=== PATIENT | male | born 1960 | race Caucasian/White ===

== ENCOUNTER 2017-04-27 10:25 | Inpatient (IN) | payer OTHER ==
[~2017-04-27] VITALS: Ht 175.3 cm; Wt 58.1 kg
[~2017-04-27 10:25] MED LIST: AMBIEN10 M1 PO; ANTIVERT25 MG; ASPIR 8181 MG PO; BONINE25 MG PO; COREG12.5 MG PO; COREG25 MG PO; COREG6.25 MG PO; KEFLEX500 MG PO; LIPITOR40 MG PO; OMEPRAZOLE D/R20 MG PO; PERCOCET 325 MG1 TA2 PO; PERCOCET 325 MG1 TA3 PO; PERCOCET 325 MG1 TA4; PERCOCET 325 MG1 TAB PO; PHENERGAN25 M1 PO; PREVACID15 MG PO; ULTRAM50 MG PO; VICODIN 5/500 505 MG PO; VICODIN ES 7501 TAB PO; ZOCOR40 MG PO; ZOFRAN ODT4 MG SL; ZOFRAN ODT8 MG PO
[2017-04-27 10:28] VITALS: BP 126/85
[2017-04-27] MEDS ORDERED: METFORMIN500 MG PO (10:33)
[2017-04-27 11:03] LABS: BASO % 0.3 % (0.0-1.0); EOS # 0.1 10*3/uL (0.0-0.4); EOS % 0.9 % (1.0-4.0); HEMATOCRIT 51.9 % (42.0-52.0); HEMOGLOBIN 17.6 g/dl (14.0-18.0); LYMPH # 1.3 10*3/uL (1.3-4.4); LYMPH % 16.2 % (27.0-41.0); MEAN CELL VOLUME 95.2 fl (80.0-94.0); MEAN CORPUSCULAR HGB 32.3 pg (27.0-31.0); MEAN CORPUSCULAR HGB CONC 33.9 g/dl (33.0-37.0); MEAN PLATELET VOLUME 10.6 fl (9.6-12.3); MONO # 1.1 10*3/uL (0.1-1.0); MONO % 14.8 % (3.0-9.0); NEUT # 5.2 10*3/uL (2.3-7.9); NEUT % 67.3 % (47.0-73.0); PLATELET COUNT AUTOMATED 163 10*3/uL (130-400); RED BLOOD COUNT 5.45 10*6/uL (4.50-5.90); RED CELL DISTRI WIDTH 15.9 % (0-14.5); WHITE BLOOD COUNT 7.7 10*3/uL (4.8-10.8)
[2017-04-27 11:17] LABS: INTERNATIONAL NORM RATIO 0.9 (2.0-3.5)
[2017-04-27 11:24] LABS: ALBUMIN 3.8 gm/dl (3.1-4.5); ALKALINE PHOSPHATASE 61 U/L (45-117); BILIRUBIN, TOTAL 0.6 mg/dl (0.2-1.0); BUN 13 mg/dl (7-24); CARBON DIOXIDE 26 mmol/L (21-32); CHLORIDE 99 mmol/L (98-107); EST GLOM FILT AFRICAN AMERICAN > 60 ml/min; GLUCOSE 168 mg/dL (65-99); MAGNESIUM 1.5 mg/dL (1.5-2.1); POTASSIUM 4.8 mmol/L (3.5-5.1); SGOT/AST 22 IU/L (3-35); SGPT/ALT 21 U/L (12-78); SODIUM 136 mmol/L (136-145); TOTAL PROTEIN 8.5 gm/dL (6.4-8.2)
[2017-04-27 11:28] LABS: TROPONIN I < 0.015 ng/ml (<0.045)
[2017-04-27 12:09] VITALS: BP 122/78
[2017-04-27 12:30] VITALS: BP 130/82
[2017-04-27] MEDS ORDERED: AMBIEN10 M1 PO (12:58)
[2017-04-27] MEDS ORDERED: DRAMAMINE LESS25 MG PO (12:59)
[2017-04-27 13:01] LABS: LA>2 REFLEX 2 HR DRAW NOW
[2017-04-27 16:00] VITALS: BP 128/83
[2017-04-27 20:00] VITALS: BP 112/64
[2017-04-27 22:00] VITALS: BP 118/64
[2017-04-28] VITALS: BP 110/59
[2017-04-28 06:11] LABS: BASO % 0.3 % (0.0-1.0); EOS # 0.1 10*3/uL (0.0-0.4); EOS % 1.6 % (1.0-4.0); LYMPH # 0.9 10*3/uL (1.3-4.4); LYMPH % 15.4 % (27.0-41.0); MEAN CELL VOLUME 96.6 fl (80.0-94.0); MEAN CORPUSCULAR HGB 32.6 pg (27.0-31.0); MEAN CORPUSCULAR HGB CONC 33.7 g/dl (33.0-37.0); MEAN PLATELET VOLUME 10.9 fl (9.6-12.3); MONO # 0.9 10*3/uL (0.1-1.0); MONO % 16.3 % (3.0-9.0); NEUT # 3.8 10*3/uL (2.3-7.9); NEUT % 66.1 % (47.0-73.0); PLATELET COUNT AUTOMATED 128 10*3/uL (130-400); RED BLOOD COUNT 4.42 10*6/uL (4.50-5.90); RED CELL DISTRI WIDTH 15.8 % (0-14.5); WHITE BLOOD COUNT 5.7 10*3/uL (4.8-10.8)
[2017-04-28 06:19] LABS: HEMATOCRIT 42.7 % (42.0-52.0); HEMOGLOBIN 14.4 g/dl (14.0-18.0)
[2017-04-28 06:29] LABS: ALBUMIN 2.9 gm/dl (3.1-4.5); ALKALINE PHOSPHATASE 45 U/L (45-117); BILIRUBIN, TOTAL 0.6 mg/dl (0.2-1.0); BUN 10 mg/dl (7-24); CARBON DIOXIDE 27 mmol/L (21-32); CHLORIDE 103 mmol/L (98-107); EST GLOM FILT AFRICAN AMERICAN > 60 ml/min; FREE T4 1.34 ng/dl (0.76-1.46); GLUCOSE 130 mg/dL (65-99); MAGNESIUM 1.3 mg/dL (1.5-2.1); POTASSIUM 3.9 mmol/L (3.5-5.1); SGOT/AST 18 IU/L (3-35); SGPT/ALT 18 U/L (12-78); SODIUM 137 mmol/L (136-145); TOTAL PROTEIN 6.3 gm/dL (6.4-8.2)
[2017-04-28 06:33] LABS: THYROID STIM HORMONE (HS) 0.444 uIU/ml (0.358-4.75)
[2017-04-28 06:43] LABS: PROTHROMBIN TIME 10.1 SECONDS (9.0-12.4)
[2017-04-28 07:20] LABS: HEMOGLOBIN A1c 6.4 % (4.8-5.6)
[2017-04-28 07:25] LABS: VITAMIN D, 25-HYDROXY 9.9 ng/mL (30-100)
[2017-04-28 07:26] LABS: FOLIC ACID 9.44 ng/mL (>5.38)
[2017-04-28 08:00] VITALS: BP 130/60
[2017-04-28 12:00] VITALS: BP 128/62
[2017-04-28] MEDS ORDERED: VITAMIN D5000 I3 PO (13:45)
== END 2017-04-28 15:26 | disposition home or self-care (01) | DRG 439 ==
LOC: ED 10:25 → 5E 11:52 → EDHOLD 11:52 → 5E 12:10
PROVIDERS: Family Medicine; Student in an Organized Health Care Education/Training Program
DX: K85.90 Acute pancreatitis without necrosis or infection, unspecified (principal); E87.2 Acidosis; E44.0 Moderate protein-calorie malnutrition; E11.65 Type 2 diabetes mellitus with hyperglycemia; Z68.1 Body mass index [BMI] 19.9 or less, adult; E86.0 Dehydration; K86.1 Other chronic pancreatitis; E78.5 Hyperlipidemia, unspecified; I10 Essential (primary) hypertension; K21.9 Gastro-esophageal reflux disease without esophagitis; I25.10 Atherosclerotic heart disease of native coronary artery without angina pectoris; F17.210 Nicotine dependence, cigarettes, uncomplicated; F10.10 Alcohol abuse, uncomplicated; E55.9 Vitamin D deficiency, unspecified; Z95.0 Presence of cardiac pacemaker; Z83.3 Family history of diabetes mellitus; Z82.49 Family history of ischemic heart disease and other diseases of the circulatory system; Z71.6 Tobacco abuse counseling; Z79.82 Long term (current) use of aspirin; Z79.84 Long term (current) use of oral hypoglycemic drugs; Z79.899 Other long term (current) drug therapy

== ENCOUNTER 2017-06-23 06:35 | Inpatient (IN) | payer OTHER ==
[~2017-06-23] VITALS: Ht 175.3 cm; Wt 59.6 kg
[~2017-06-23 06:35] MED LIST changes: +DRAMAMINE LESS25 MG PO; +METFORMIN500 MG PO; +VITAMIN D5000 I3 PO
[2017-06-23 06:38] VITALS: BP 133/95
[2017-06-23 07:11] LABS: BASO % 0.1 % (0.0-1.0); EOS # 0.1 10*3/uL (0.0-0.4); EOS % 0.8 % (1.0-4.0); HEMATOCRIT 47.2 % (42.0-52.0); HEMOGLOBIN 15.8 g/dl (14.0-18.0); LYMPH # 0.8 10*3/uL (1.3-4.4); LYMPH % 7.8 % (27.0-41.0); MEAN CELL VOLUME 97.1 fl (80.0-94.0); MEAN CORPUSCULAR HGB 32.5 pg (27.0-31.0); MEAN CORPUSCULAR HGB CONC 33.5 g/dl (33.0-37.0); MEAN PLATELET VOLUME 10.5 fl (9.6-12.3); MONO % 9.8 % (3.0-9.0); NEUT # 8.5 10*3/uL (2.3-7.9); NEUT % 81.1 % (47.0-73.0); PLATELET COUNT AUTOMATED 182 10*3/uL (130-400); RED BLOOD COUNT 4.86 10*6/uL (4.50-5.90); RED CELL DISTRI WIDTH 16.1 % (0-14.5); WHITE BLOOD COUNT 10.5 10*3/uL (4.8-10.8)
[2017-06-23 07:26] LABS: ALBUMIN 3.9 gm/dl (3.1-4.5); ALKALINE PHOSPHATASE 65 U/L (45-117); BILIRUBIN, TOTAL 0.8 mg/dl (0.2-1.0); BUN 9 mg/dl (7-24); CARBON DIOXIDE 31 mmol/L (21-32); CHLORIDE 95 mmol/L (98-107); EST GLOM FILT AFRICAN AMERICAN > 60 ml/min; GLUCOSE 159 mg/dL (65-99); POTASSIUM 3.8 mmol/L (3.5-5.1); SGOT/AST 20 IU/L (3-35); SGPT/ALT 16 U/L (12-78); SODIUM 134 mmol/L (136-145); TOTAL PROTEIN 8.1 gm/dL (6.4-8.2)
[2017-06-23 07:41] VITALS: BP 134/90
[2017-06-23] MEDS ORDERED: PROTONIX40 MG PO (09:09)
[2017-06-23 12:00] VITALS: BP 154/86
[2017-06-23 16:00] VITALS: BP 162/88
[2017-06-23 20:00] VITALS: BP 167/85
[2017-06-24] VITALS: BP 146/70
[2017-06-24 06:41] LABS: BASO % 0.2 % (0.0-1.0); EOS % 0.4 % (1.0-4.0); HEMATOCRIT 43.8 % (42.0-52.0); HEMOGLOBIN 14.6 g/dl (14.0-18.0); IG # 0.1 10*3/uL (0.0-0.1); LYMPH # 0.7 10*3/uL (1.3-4.4); LYMPH % 8.2 % (27.0-41.0); MEAN CELL VOLUME 96.5 fl (80.0-94.0); MEAN CORPUSCULAR HGB 32.2 pg (27.0-31.0); MEAN CORPUSCULAR HGB CONC 33.3 g/dl (33.0-37.0); MEAN PLATELET VOLUME 10.9 fl (9.6-12.3); MONO # 1.1 10*3/uL (0.1-1.0); MONO % 13.4 % (3.0-9.0); NEUT # 6.2 10*3/uL (2.3-7.9); NEUT % 77.2 % (47.0-73.0); PLATELET COUNT AUTOMATED 143 10*3/uL (130-400); RED BLOOD COUNT 4.54 10*6/uL (4.50-5.90); WHITE BLOOD COUNT 8.1 10*3/uL (4.8-10.8)
[2017-06-24 07:20] LABS: INTERNATIONAL NORM RATIO 0.9 (2.0-3.5); PROTHROMBIN TIME 9.8 SECONDS (9.0-12.4)
[2017-06-24 07:28] LABS: ALBUMIN 3.2 gm/dl (3.1-4.5); BUN 8 mg/dl (7-24); CARBON DIOXIDE 26 mmol/L (21-32); CHLORIDE 98 mmol/L (98-107); CHOLESTEROL 116 mg/dL (<200); GLUCOSE 115 mg/dL (65-99); MAGNESIUM 1.5 mg/dL (1.5-2.1); POTASSIUM 3.6 mmol/L (3.5-5.1); SGOT/AST 17 IU/L (3-35); SGPT/ALT 15 U/L (12-78); SODIUM 135 mmol/L (136-145)
[2017-06-24 07:45] LABS: ALKALINE PHOSPHATASE 56 U/L (45-117); BILIRUBIN, TOTAL 0.7 mg/dl (0.2-1.0); EST GLOM FILT AFRICAN AMERICAN > 60 ml/min; FREE T4 1.46 ng/dl (0.76-1.46); HDL CHOLESTEROL 49 mg/dl (40-60); LDL CHOLESTEROL 44 mg/dL (9-159); PHOSPHOROUS 2.1 mg/dL (2.5-4.9); THYROID STIM HORMONE (HS) 0.318 uIU/ml (0.358-4.75); TOTAL PROTEIN 7.4 gm/dL (6.4-8.2); TRIGLYCERIDES 115 mg/dl (<150); VLDL CHOLESTEROL 23 mg/dL (6-40)
[2017-06-24 08:00] VITALS: BP 160/74
[2017-06-24 08:34] LABS: VITAMIN D, 25-HYDROXY 31.1 ng/mL (30-100)
[2017-06-24 08:35] LABS: FOLIC ACID 9.34 ng/mL (>5.38)
[2017-06-24 12:00] VITALS: BP 149/89
[2017-06-24 16:00] VITALS: BP 149/83
[2017-06-24 20:00] VITALS: BP 149/78
[2017-06-25] VITALS: BP 117/85
[2017-06-25 06:31] LABS: BUN 8 mg/dl (7-24); CARBON DIOXIDE 29 mmol/L (21-32); CHLORIDE 102 mmol/L (98-107); EST GLOM FILT AFRICAN AMERICAN > 60 ml/min; GLUCOSE 126 mg/dL (65-99); PHOSPHOROUS 2.1 mg/dL (2.5-4.9); POTASSIUM 3.5 mmol/L (3.5-5.1); SODIUM 138 mmol/L (136-145)
[2017-06-25 08:00] VITALS: BP 115/73
[2017-06-25 12:00] VITALS: BP 120/67
== END 2017-06-25 14:30 | disposition home or self-care (01) | DRG 439 ==
LOC: ED 06:35 → 5E 07:43 → EDHOLD 07:43 → 5E 07:48
PROVIDERS: Emergency Medicine; Internal Medicine; Internal Medicine Hospice and Palliative Medicine
DX: K85.20 Alcohol induced acute pancreatitis without necrosis or infection (principal); E44.0 Moderate protein-calorie malnutrition; E87.8 Other disorders of electrolyte and fluid balance, not elsewhere classified; R65.10 Systemic inflammatory response syndrome (SIRS) of non-infectious origin without acute organ dysfunction; E11.65 Type 2 diabetes mellitus with hyperglycemia; E83.39 Other disorders of phosphorus metabolism; E87.1 Hypo-osmolality and hyponatremia; Z68.1 Body mass index [BMI] 19.9 or less, adult; K86.0 Alcohol-induced chronic pancreatitis; E83.52 Hypercalcemia; I10 Essential (primary) hypertension; F10.10 Alcohol abuse, uncomplicated; D72.810 Lymphocytopenia; E78.2 Mixed hyperlipidemia; F17.210 Nicotine dependence, cigarettes, uncomplicated; D75.89 Other specified diseases of blood and blood-forming organs; I25.10 Atherosclerotic heart disease of native coronary artery without angina pectoris; K21.9 Gastro-esophageal reflux disease without esophagitis; E78.5 Hyperlipidemia, unspecified; Z93.3 Colostomy status; Z71.6 Tobacco abuse counseling; Z79.82 Long term (current) use of aspirin; Z79.84 Long term (current) use of oral hypoglycemic drugs; Z79.899 Other long term (current) drug therapy; Z95.0 Presence of cardiac pacemaker; Z83.3 Family history of diabetes mellitus; Z82.49 Family history of ischemic heart disease and other diseases of the circulatory system

== ENCOUNTER 2017-07-09 18:13 | Emergency (ER) | payer OTHER ==
[~2017-07-09] VITALS: Ht 175.2 cm; Wt 61.7 kg
[~2017-07-09 18:13] MED LIST changes: +PROTONIX40 MG PO
[2017-07-09 19:15] LABS: BASO % 0.5 % (0.0-1.0); EOS # 0.2 10*3/uL (0.0-0.4); EOS % 2.5 % (1.0-4.0); HEMATOCRIT 38.1 % (42.0-52.0); HEMOGLOBIN 12.5 g/dl (14.0-18.0); LYMPH # 1.5 10*3/uL (1.3-4.4); LYMPH % 23.8 % (27.0-41.0); MEAN CELL VOLUME 97.2 fl (80.0-94.0); MEAN CORPUSCULAR HGB 31.9 pg (27.0-31.0); MEAN CORPUSCULAR HGB CONC 32.8 g/dl (33.0-37.0); MEAN PLATELET VOLUME 11.2 fl (9.6-12.3); MONO # 0.8 10*3/uL (0.1-1.0); MONO % 13.5 % (3.0-9.0); NEUT # 3.6 10*3/uL (2.3-7.9); NEUT % 59.4 % (47.0-73.0); PLATELET COUNT AUTOMATED 161 10*3/uL (130-400); RED BLOOD COUNT 3.92 10*6/uL (4.50-5.90); RED CELL DISTRI WIDTH 15.6 % (0-14.5); WHITE BLOOD COUNT 6.1 10*3/uL (4.8-10.8)
[2017-07-09 19:44] LABS: BILIRUBIN NEGATIVE (NEGATIVE); BLOOD NEGATIVE (NEGATIVE); CLARITY CLEAR (CLEAR); COLOR YELLOW (YELLOW); GLUCOSE NEGATIVE (NEGATIVE); KETONE NEGATIVE (NEGATIVE); LEUKO ESTERASE NEGATIVE (NEGATIVE); NITRITE NEGATIVE (NEGATIVE); SPECIFIC GRAVITY <= 1.005 (1.005-1.030); UROBILINOGEN 0.2 E.U./dl (0.2-1.0)
[2017-07-09 19:51] LABS: BACTERIA TRACE; RBC 0-2 rbc/hpf (0-2); WBC 0-2 wbc/hpf (0-5)
[2017-07-09 19:54] LABS: ALBUMIN 2.8 gm/dl (3.1-4.5); ALKALINE PHOSPHATASE 55 U/L (45-117); BUN 8 mg/dl (7-24); CHLORIDE 100 mmol/L (98-107); CREATININE 0.83 mg/dL (0.70-1.30); LIPASE 99 U/L (73-393); SGOT/AST 13 IU/L (3-35); SGPT/ALT 11 U/L (12-78); SODIUM 138 mmol/L (136-145); TOTAL PROTEIN 6.9 gm/dL (6.4-8.2)
[2017-07-09 20:50] VITALS: BP 142/75
== END 2017-07-09 22:56 | disposition home or self-care (01) ==
LOC: ED 18:13
PROVIDERS: Nurse Practitioner
DX: R42 Dizziness and giddiness (principal); K86.1 Other chronic pancreatitis; F17.200 Nicotine dependence, unspecified, uncomplicated; Z95.0 Presence of cardiac pacemaker; Z93.3 Colostomy status; Z79.82 Long term (current) use of aspirin; Z79.899 Other long term (current) drug therapy; Z90.49 Acquired absence of other specified parts of digestive tract; Z87.442 Personal history of urinary calculi

== ENCOUNTER 2017-07-28 11:53 | Inpatient (IN) | payer OTHER ==
[~2017-07-28] VITALS: Ht 175.3 cm; Wt 62.9 kg
[2017-07-28 11:53] VITALS: BP 106/66
[2017-07-28 12:23] LABS: BASO % 0.2 % (0.0-1.0); EOS % 0.3 % (1.0-4.0); HEMATOCRIT 46.6 % (42.0-52.0); HEMOGLOBIN 15.8 g/dl (14.0-18.0); LYMPH # 1.3 10*3/uL (1.3-4.4); LYMPH % 10.5 % (27.0-41.0); MEAN CELL VOLUME 94.5 fl (80.0-94.0); MEAN CORPUSCULAR HGB CONC 33.9 g/dl (33.0-37.0); MEAN PLATELET VOLUME 10.2 fl (9.6-12.3); MONO # 1.5 10*3/uL (0.1-1.0); MONO % 12.1 % (3.0-9.0); NEUT # 9.2 10*3/uL (2.3-7.9); NEUT % 76.3 % (47.0-73.0); PLATELET COUNT AUTOMATED 369 10*3/uL (130-400); RED BLOOD COUNT 4.93 10*6/uL (4.50-5.90); RED CELL DISTRI WIDTH 15.2 % (0-14.5); WHITE BLOOD COUNT 12.1 10*3/uL (4.8-10.8)
[2017-07-28 12:32] LABS: ACT PARTIAL THROMBO TIME 21.2 SECONDS (20.8-31.5)
[2017-07-28 12:38] LABS: ALBUMIN 3.4 gm/dl (3.1-4.5); ALKALINE PHOSPHATASE 78 U/L (45-117); BUN 27 mg/dl (7-24); CHLORIDE 87 mmol/L (98-107); CPK 14 U/L (39-308); CREATININE 1.29 mg/dL (0.70-1.30); LIPASE 579 U/L (73-393); MAGNESIUM 1.7 mg/dL (1.5-2.1); POTASSIUM 3.8 mmol/L (3.5-5.1); SGOT/AST 14 IU/L (3-35); SGPT/ALT 15 U/L (12-78); SODIUM 129 mmol/L (136-145); TOTAL PROTEIN 8.7 gm/dL (6.4-8.2)
[2017-07-28 12:44] LABS: CKMB < 0.5 ng/ml (0.5-3.6); TROPONIN I < 0.015 ng/ml (<0.045)
[2017-07-28 13:28] LABS: BILIRUBIN NEGATIVE (NEGATIVE); BLOOD TRACE-LYSED (NEGATIVE); CLARITY CLEAR (CLEAR); COLOR YELLOW (YELLOW); GLUCOSE NEGATIVE (NEGATIVE); KETONE TRACE (NEGATIVE); LEUKO ESTERASE NEGATIVE (NEGATIVE); NITRITE NEGATIVE (NEGATIVE); SPECIFIC GRAVITY 1.025 (1.005-1.030); UROBILINOGEN 0.2 E.U./dl (0.2-1.0)
[2017-07-28 13:40] LABS: EPITHELIAL CELLS 0-2; RBC 0-2 rbc/hpf (0-2); WBC 16-20 wbc/hpf (0-5)
[2017-07-28 14:22] VITALS: BP 106/66
[2017-07-28 14:34] VITALS: BP 143/76
[2017-07-28 16:00] VITALS: BP 126/73
[2017-07-28] MEDS ORDERED: PERCOCET 10-321 EACH PO (16:23)
[2017-07-28 20:00] VITALS: BP 142/75
[2017-07-29] VITALS: BP 146/72
[2017-07-29 07:17] LABS: BASO % 0.1 % (0.0-1.0); EOS # 0.1 10*3/uL (0.0-0.4); EOS % 0.7 % (1.0-4.0); HEMATOCRIT 39.8 % (42.0-52.0); HEMOGLOBIN 13.7 g/dl (14.0-18.0); LYMPH # 0.8 10*3/uL (1.3-4.4); MEAN CELL VOLUME 94.8 fl (80.0-94.0); MEAN CORPUSCULAR HGB 32.6 pg (27.0-31.0); MEAN CORPUSCULAR HGB CONC 34.4 g/dl (33.0-37.0); MEAN PLATELET VOLUME 10.3 fl (9.6-12.3); MONO % 11.8 % (3.0-9.0); NEUT # 6.9 10*3/uL (2.3-7.9); NEUT % 77.9 % (47.0-73.0); PLATELET COUNT AUTOMATED 243 10*3/uL (130-400); RED CELL DISTRI WIDTH 14.8 % (0-14.5); WHITE BLOOD COUNT 8.8 10*3/uL (4.8-10.8)
[2017-07-29 07:27] LABS: BUN 18 mg/dl (7-24); CHLORIDE 95 mmol/L (98-107); CHOLESTEROL 103 mg/dL (<200); CREATININE 1.06 mg/dL (0.70-1.30); HDL CHOLESTEROL 23 mg/dl (40-60); LDL CHOLESTEROL 40 mg/dL (9-159); MAGNESIUM 1.4 mg/dL (1.5-2.1); POTASSIUM 2.9 mmol/L (3.5-5.1); SODIUM 133 mmol/L (136-145); TRIGLYCERIDES 200 mg/dl (<150); VLDL CHOLESTEROL 40 mg/dL (6-40)
[2017-07-29 07:33] LABS: THYROID STIM HORMONE (HS) 0.394 uIU/ml (0.358-4.75)
[2017-07-29 08:00] VITALS: BP 140/78
[2017-07-29 11:09] LABS: VITAMIN D, 25-HYDROXY 34.2 ng/mL (30-100)
[2017-07-29 12:00] VITALS: BP 114/82
[2017-07-29 16:00] VITALS: BP 125/73
[2017-07-29 20:00] VITALS: BP 119/63
[2017-07-30] VITALS: BP 124/68
[2017-07-30] MEDS ORDERED: VITAMIN D-32000 UNI1 PO (02:15)
[2017-07-30 06:20] LABS: BASO % 0.4 % (0.0-1.0); EOS # 0.1 10*3/uL (0.0-0.4); EOS % 0.8 % (1.0-4.0); HEMATOCRIT 37.9 % (42.0-52.0); HEMOGLOBIN 12.5 g/dl (14.0-18.0); LYMPH # 1.1 10*3/uL (1.3-4.4); LYMPH % 14.6 % (27.0-41.0); MEAN CELL VOLUME 96.7 fl (80.0-94.0); MEAN CORPUSCULAR HGB 31.9 pg (27.0-31.0); MEAN PLATELET VOLUME 10.6 fl (9.6-12.3); MONO # 0.7 10*3/uL (0.1-1.0); MONO % 9.5 % (3.0-9.0); NEUT # 5.7 10*3/uL (2.3-7.9); NEUT % 74.3 % (47.0-73.0); PLATELET COUNT AUTOMATED 232 10*3/uL (130-400); RED BLOOD COUNT 3.92 10*6/uL (4.50-5.90); RED CELL DISTRI WIDTH 15.1 % (0-14.5); WHITE BLOOD COUNT 7.7 10*3/uL (4.8-10.8)
[2017-07-30 06:49] LABS: BUN 9 mg/dl (7-24); CHLORIDE 99 mmol/L (98-107); CREATININE 0.89 mg/dL (0.70-1.30); POTASSIUM 3.8 mmol/L (3.5-5.1); SODIUM 137 mmol/L (136-145)
[2017-07-30 08:00] VITALS: BP 118/70
[2017-07-30 12:00] VITALS: BP 144/77
[2017-07-30 16:00] VITALS: BP 125/57
[2017-07-30 20:00] VITALS: BP 120/70
[2017-07-31] VITALS: BP 153/70
[2017-07-31 06:40] LABS: BASO % 0.3 % (0.0-1.0); EOS # 0.1 10*3/uL (0.0-0.4); EOS % 1.4 % (1.0-4.0); HEMATOCRIT 33.6 % (42.0-52.0); HEMOGLOBIN 11.4 g/dl (14.0-18.0); LYMPH # 1.3 10*3/uL (1.3-4.4); LYMPH % 16.4 % (27.0-41.0); MEAN CELL VOLUME 96.3 fl (80.0-94.0); MEAN CORPUSCULAR HGB 32.7 pg (27.0-31.0); MEAN CORPUSCULAR HGB CONC 33.9 g/dl (33.0-37.0); MEAN PLATELET VOLUME 10.3 fl (9.6-12.3); MONO % 12.7 % (3.0-9.0); NEUT # 5.3 10*3/uL (2.3-7.9); NEUT % 68.9 % (47.0-73.0); PLATELET COUNT AUTOMATED 194 10*3/uL (130-400); RED BLOOD COUNT 3.49 10*6/uL (4.50-5.90); RED CELL DISTRI WIDTH 15.1 % (0-14.5); WHITE BLOOD COUNT 7.7 10*3/uL (4.8-10.8)
[2017-07-31 07:08] LABS: BUN 6 mg/dl (7-24); CHLORIDE 104 mmol/L (98-107); CREATININE 0.95 mg/dL (0.70-1.30); MAGNESIUM 1.3 mg/dL (1.5-2.1); PHOSPHOROUS 1.7 mg/dL (2.5-4.9); POTASSIUM 3.5 mmol/L (3.5-5.1); SODIUM 140 mmol/L (136-145)
[2017-07-31 08:00] VITALS: BP 162/82
[2017-07-31 12:00] VITALS: BP 104/65
[2017-07-31 16:00] VITALS: BP 120/75
[2017-07-31 20:00] VITALS: BP 150/71
[2017-08-01] VITALS: BP 154/88
[2017-08-01 07:05] LABS: BUN 9 mg/dl (7-24); CHLORIDE 105 mmol/L (98-107); CREATININE 0.78 mg/dL (0.70-1.30); MAGNESIUM 1.5 mg/dL (1.5-2.1); PHOSPHOROUS 2.1 mg/dL (2.5-4.9); POTASSIUM 3.6 mmol/L (3.5-5.1); SODIUM 137 mmol/L (136-145)
[2017-08-01 08:00] VITALS: BP 146/72
[2017-08-01] MEDS ORDERED: COREG6.25 MG PO (08:47)
[2017-08-01] MEDS ORDERED: FLUDROCORTISON0.1 MG PO (10:47)
[2017-08-01 12:00] VITALS: BP 188/88
== END 2017-08-01 14:51 | disposition home or self-care (01) | DRG 871 ==
LOC: ED 11:53 → EDHOLD 13:28 → 5E 13:28
PROVIDERS: Emergency Medicine; Internal Medicine; ADMIT Internal Medicine
DX: A41.9 Sepsis, unspecified organism (principal); K85.90 Acute pancreatitis without necrosis or infection, unspecified; E43 Unspecified severe protein-calorie malnutrition; E87.2 Acidosis; K86.3 Pseudocyst of pancreas; K86.1 Other chronic pancreatitis; E11.65 Type 2 diabetes mellitus with hyperglycemia; E86.0 Dehydration; E87.1 Hypo-osmolality and hyponatremia; Z68.1 Body mass index [BMI] 19.9 or less, adult; K52.9 Noninfective gastroenteritis and colitis, unspecified; D34 Benign neoplasm of thyroid gland; E83.52 Hypercalcemia; I95.1 Orthostatic hypotension; F10.10 Alcohol abuse, uncomplicated; E78.5 Hyperlipidemia, unspecified; I10 Essential (primary) hypertension; K21.9 Gastro-esophageal reflux disease without esophagitis; F17.210 Nicotine dependence, cigarettes, uncomplicated; I25.10 Atherosclerotic heart disease of native coronary artery without angina pectoris; I08.1 Rheumatic disorders of both mitral and tricuspid valves; E83.39 Other disorders of phosphorus metabolism; E83.42 Hypomagnesemia; E04.1 Nontoxic single thyroid nodule; Z71.6 Tobacco abuse counseling; I25.2 Old myocardial infarction; Z79.82 Long term (current) use of aspirin; Z90.49 Acquired absence of other specified parts of digestive tract; Z95.0 Presence of cardiac pacemaker; Z82.49 Family history of ischemic heart disease and other diseases of the circulatory system; Z83.3 Family history of diabetes mellitus; Z80.9 Family history of malignant neoplasm, unspecified; Z79.84 Long term (current) use of oral hypoglycemic drugs

== ENCOUNTER → 2017-08-27 | Outpatient (CLI) | payer OTHER ==
[~2017-08-27] MED LIST changes: +FLUDROCORTISON0.1 MG PO; +PERCOCET 10-321 EACH PO; +VITAMIN D-32000 UNI1 PO
== END | disposition home or self-care (01) ==
LOC: NM 02:11
DX: E21.3 Hyperparathyroidism, unspecified (principal); D49.7 Neoplasm of unspecified behavior of endocrine glands and other parts of nervous system

== ENCOUNTER → 2017-09-08 | Outpatient (CLI) | payer OTHER | END | disposition home or self-care (01) | LOC: LAB 03:54 → RAD 08:00 | DX: E21.3 Hyperparathyroidism, unspecified (principal); R22.1 Localized swelling, mass and lump, neck ==

== ENCOUNTER → 2018-01-30 | Outpatient (CLI) | payer OTHER ==
[2018-01-30 09:11] LABS: BUN 7 mg/dl (7-24); CHLORIDE 99 mmol/L (98-107); CREATININE 0.89 mg/dL (0.70-1.30); POTASSIUM 3.7 mmol/L (3.5-5.1); SODIUM 134 mmol/L (136-145)
== END | disposition home or self-care (01) ==
LOC: LAB 01:31
PROVIDERS: Family Medicine
DX: E83.52 Hypercalcemia (principal)

== ENCOUNTER 2018-05-23 06:42 | Inpatient (IN) | payer OTHER ==
[~2018-05-23] VITALS: Ht 175.2 cm; Wt 56.3 kg
--- NOTE | ~2018-05-23 | O ---
[place], [place] OPERATIVE NOTE NAME: RHONDA EMERY UNIT #: [id number] ROOM: 517 DOCTOR: NADEEM LARSON MD BIRTHDATE: [birth year] DOS: 05/29/2018 INDICATIONS: This is a 58-year-old patient who presented with chief complaint of recurrent pancreatitis, normal liver function test, and dilated biliary tree. PROCEDURE: Today's procedure part of investigation is ERCP pancreatogram. PREMEDICATION: Propofol by Anesthesia. SCOPE: Olympus side-viewing duodenoscope. REPORT: After putting the patient in left lateral position and application of lubricant to the scope, the scope was introduced. Thereafter, under direct visualization, I advanced through the length of esophagus into gastric pouch into duodenal bulb. A periampullary diverticulum was identified. The papillary stenosis was experienced. Finally, with guidewire, I was able to negotiate into the pancreatic duct. Opacification of the duct was done appears to be very dilated and possible intraductal cyst connection was noticed. No papillotomy performed. No stent in the common duct was done since we did not have a pancreatic stent available. The patient extubated and tolerated procedure well. IMPRESSION: Dilated pancreatic duct with narrowing at the head of the pancreas associated with papillary stenosis. PLAN AND DISCUSSION: Emptying of the duct after the procedure was documented by keeping the guidewire in the main pancreatic duct and allowing free flow to the car and the patient sent back to the recovery room. PLAN AND DISCUSSION: The effect of the cannulization of the pancreatic duct by itself has induced some dilation, but eventually he requires to have US endoscopy. This can be organized in [place] and possible stenting that we did not have available. Work up as outpatient continues when he is stable he can be discharged. [place], [place] OPERATIVE NOTE NAME: RHONDA EMERY UNIT #: [id number] ROOM: 517 DOCTOR: NADEEM LARSON MD BIRTHDATE: [birth year] NADEEM LARSON MD CM:OPRECORD:OPERATIVE NOTE [id number] NADEEM LARSON MD 05/29/18 1540 interface
--- NOTE | ~2018-05-23 | CON ---
[place], [place] REPORT OF CONSULTATION NAME: RHONDA EMERY [facility] #: [id number] UNIT #: [id number] ROOM: 517 DOCTOR: MARSHA SNYDERAURORAPHILADELPHIAJOSE DAVID BIRTHDATE: [birth year] DOS: 05/27/2018 GASTROENDOSCOPIC CONSULTATION REPORT HISTORY OF PRESENT ILLNESS: This is a 58-year-old patient who has presented with abdominal pain to the service with evidence of pancreatitis. Amylase and lipase elevation of 157 and 1023. Liver function tests being normal and therefore he had CT scan of the abdomen without contrast and CT scan of the abdomen with contrast, there was a busy report; however, in summary, there is intrahepatic ductal dilation and gallbladder sludge and there is thickening in duodenum and we have been asked for ERCP evaluation, since the patient has pacemaker in place, MRCP could not have been done. Ultrasound of the liver, gallbladder, and gallbladder sludge and intrahepatic ducts where dilation were reconfirmed. Blood cultures remain negative. His basic metabolic panel is within normal limits. His CBC: H and H of 11 and 34 with platelets of 151. Chest x-ray, no acute pulmonary disease was noticed. PAST MEDICAL HISTORY: Associated with coronary artery disease, chronic recurrent pancreatitis, alcohol dependency, gastroesophageal reflux symptomatology, hypertension systemically, hyperlipidemia, tobacco dependency, type 2 diabetes mellitus, and vitamin D deficiency. PAST SURGICAL HISTORY: Colostomy and reversal and pacemaker. SOCIAL HISTORY: Active smoker and alcohol consumer. FAMILY HISTORY: Noncontributory. ALLERGIES: To no known medications. MEDICATIONS: Medication list has been reviewed including aspirin and pantoprazole at the same time amongst others. REVIEW OF SYSTEMS: HEENT: Denies double vision, blurred vision. RESPIRATORY: Denies acute shortness of breath. CARDIOVASCULAR: Denies acute chest pain. DIGESTIVE SYSTEM: History of recurrent pancreatitis and acute pancreatitis at this admission. PHYSICAL EXAMINATION: GENERAL: Frail patient. HEENT: Head normocephalic, nontraumatic. Mouth and buccal mucosa benign. NECK: Supple, no thyromegaly, no cervical lymphadenopathy. CHEST: Symmetric anatomy, decreased air entry in general. No wheeze, no rhonchi. HEART: Normal sinus rhythm, no gallop, no murmur. ABDOMEN: Soft. No hepato-organomegaly. Bowel sounds present. No pulsatile mass. EXTREMITIES: No cyanosis, no pedal edema. [place], [place] REPORT OF CONSULTATION [id number] UNIT #: [id number] ROOM: 517 DOCTOR: NADEEM LARSON MD BIRTHDATE: [birth year] NEUROLOGIC: Alert and oriented to time, place, and person. IMPRESSION: Abnormal CT scan of the abdomen regarding abnormality of anatomy at the C-loop of the duodenum, intrahepatic dilations, pancreatitis recurrently, chronic dependence on alcohol and nicotine, systemic hypertension, diabetes mellitus, and hyperlipidemia. All has been recognized. PLAN AND DISCUSSION: Endoscopic assessment of upper tract to define the anatomy of the duodenum. Thank you very much indeed. NADEEM LARSON MD CM:CONSTR:REPORT OF CONSULTATION 1710 05/28/18 0528 interface
--- NOTE | ~2018-05-23 | O ---
[place], [place] OPERATIVE NOTE NAME: [facility] [id number] UNIT #: [id number] ROOM: 517 DOCTOR: MARSHA SNYDER,NADEEM BIRTHDATE: [birth year] DOS: 05/27/2018 INDICATION FOR PROCEDURE: The patient has presented with chronic recurrent pancreatitis and abnormalities found on CT scan in duodenum. We were concerned about infiltrating pathology in the duodenum. Today's procedure part of investigation is panendoscopy plus biopsy. PREMEDICATION: Propofol and Versed. SCOPE: Olympus forward-viewing gastroscope Q10 video. REPORT: After putting the patient in left lateral position and application of lubricant to the scope, the scope was introduced. Thereafter, under direct visualization, passed through the length of esophagus without difficulty, 1+ esophageal varicosity was noticed, which is extending about 10 cm above the Z line. Gastric pouch was entered. Gastritis seen. Antral biopsy obtained. Duodenal bulb with difficulty was entered, pyloric ring was stenotic. I had to use multiple maneuvers and massage the pyloric ring until finally led to opening and I did not find any dramatic finding in the duodenum of concern. Scope was withdrawn. The patient extubated, tolerated the procedure well. IMPRESSION: 1+ esophageal varicosity secondary to portal hypertension on board and this patient must have underlying liver disease as well and gastritis and pyloric ring stricture, status post scope dilation. PLAN AND DISCUSSION: His lipase has normalized today. We may be able to feed him low fat diet and we will try to keep the aspirin off and attempt an ERCP on Friday on him to see if we can access the common duct and explain the biliary dilation and papillary status. Bearing in mind that we may be limited as far as providing the ERCP to him due to the fact that not only he has portal hypertension, also, he has been on aspirin and alcohol up to recent few days. NADEEM ALRSON MD CM:OPRECORD:OPERATIVE NOTE 1710 [id number] NADEEM LARSON MD 05/28/18 0539 interface
[2018-05-23 06:43] VITALS: BP 149/90
[2018-05-23 07:27] LABS: HEMATOCRIT 45.4 % (42.0-52.0); HEMOGLOBIN 14.8 g/dl (14.0-18.0); MEAN CELL VOLUME 88.8 fl (80.0-94.0); MEAN CORPUSCULAR HGB CONC 32.6 g/dl (33.0-37.0); MEAN PLATELET VOLUME 10.1 fl (9.6-12.3); PLATELET COUNT AUTOMATED 274 10*3/uL (130-400); RED BLOOD COUNT 5.11 10*6/uL (4.50-5.90); WHITE BLOOD COUNT 13.6 10*3/uL (4.8-10.8)
[2018-05-23 07:44] LABS: ALBUMIN 3.6 gm/dl (3.1-4.5); ALKALINE PHOSPHATASE 77 U/L (45-117); BUN 9 mg/dl (7-24); CHLORIDE 92 mmol/L (98-107); LIPASE 1023 U/L (73-393); POTASSIUM 4.2 mmol/L (3.5-5.1); SGOT/AST 14 IU/L (3-35); SGPT/ALT 18 U/L (12-78); SODIUM 130 mmol/L (136-145); TOTAL PROTEIN 8.2 gm/dL (6.4-8.2)
[2018-05-23 07:47] LABS: PLATELET SUFFICIENCY NORMAL (NORMAL); TOTAL CELLS COUNTED 100 #CELLS
[2018-05-23 08:11] VITALS: BP 126/73
[2018-05-23 08:45] VITALS: BP 132/78
[2018-05-23 12:00] VITALS: BP 155/87
[2018-05-23 16:00] VITALS: BP 141/72
[2018-05-23 20:00] VITALS: BP 128/77
[2018-05-24] VITALS: BP 111/75
[2018-05-24 06:39] LABS: BASO % 0.4 % (0.0-1.0); EOS # 0.1 10*3/uL (0.0-0.4); EOS % 1.3 % (1.0-4.0); LYMPH # 1.5 10*3/uL (1.3-4.4); LYMPH % 19.5 % (27.0-41.0); MEAN CORPUSCULAR HGB 29.4 pg (27.0-31.0); MEAN CORPUSCULAR HGB CONC 31.6 g/dl (33.0-37.0); MEAN PLATELET VOLUME 10.6 fl (9.6-12.3); MONO # 0.8 10*3/uL (0.1-1.0); MONO % 10.9 % (3.0-9.0); NEUT % 67.6 % (47.0-73.0); PLATELET COUNT AUTOMATED 192 10*3/uL (130-400); RED BLOOD COUNT 4.22 10*6/uL (4.50-5.90); RED CELL DISTRI WIDTH 17.5 % (0-14.5); WHITE BLOOD COUNT 7.4 10*3/uL (4.8-10.8)
[2018-05-24 06:44] LABS: HEMATOCRIT 39.2 % (42.0-52.0); HEMOGLOBIN 12.4 g/dl (14.0-18.0); MEAN CELL VOLUME 92.9 fl (80.0-94.0)
[2018-05-24 07:11] LABS: BUN 9 mg/dl (7-24); CHLORIDE 104 mmol/L (98-107); CHOLESTEROL 123 mg/dL (<200); HDL CHOLESTEROL 40 mg/dl (40-60); LDL CHOLESTEROL 56 mg/dL (9-159); PHOSPHOROUS 2.1 mg/dL (2.5-4.9); POTASSIUM 3.6 mmol/L (3.5-5.1); SODIUM 140 mmol/L (136-145); TRIGLYCERIDES 136 mg/dl (<150); VLDL CHOLESTEROL 27 mg/dL (6-40)
[2018-05-24 07:14] LABS: ACT PARTIAL THROMBO TIME 24.3 SECONDS (20.8-31.5)
[2018-05-24 08:00] VITALS: BP 106/89
[2018-05-24 08:01] LABS: VITAMIN D, 25-HYDROXY 36.5 ng/mL (30-100)
[2018-05-24 12:00] VITALS: BP 120/54
[2018-05-24 16:00] VITALS: BP 137/76
[2018-05-24 20:00] VITALS: BP 159/75
[2018-05-25] VITALS: BP 159/77
[2018-05-25 06:59] LABS: BASO % 0.4 % (0.0-1.0); EOS # 0.1 10*3/uL (0.0-0.4); LYMPH # 1.1 10*3/uL (1.3-4.4); MEAN CELL VOLUME 93.1 fl (80.0-94.0); MEAN CORPUSCULAR HGB 29.4 pg (27.0-31.0); MEAN CORPUSCULAR HGB CONC 31.6 g/dl (33.0-37.0); MEAN PLATELET VOLUME 10.9 fl (9.6-12.3); MONO # 0.6 10*3/uL (0.1-1.0); MONO % 12.4 % (3.0-9.0); NEUT # 3.3 10*3/uL (2.3-7.9); PLATELET COUNT AUTOMATED 146 10*3/uL (130-400); RED BLOOD COUNT 3.47 10*6/uL (4.50-5.90); RED CELL DISTRI WIDTH 17.7 % (0-14.5); WHITE BLOOD COUNT 5.1 10*3/uL (4.8-10.8)
[2018-05-25 07:01] LABS: HEMATOCRIT 32.3 % (42.0-52.0); HEMOGLOBIN 10.2 g/dl (14.0-18.0)
[2018-05-25 07:22] LABS: BUN 6 mg/dl (7-24); CHLORIDE 104 mmol/L (98-107); POTASSIUM 3.3 mmol/L (3.5-5.1); SODIUM 139 mmol/L (136-145)
[2018-05-25 08:00] VITALS: BP 144/80
[2018-05-25 12:00] VITALS: BP 171/75
[2018-05-25 16:00] VITALS: BP 123/74
[2018-05-25 20:00] VITALS: BP 120/64
[2018-05-26] VITALS: BP 135/72
[2018-05-26 08:00] VITALS: BP 138/77
[2018-05-26 12:00] VITALS: BP 158/86
[2018-05-26 16:00] VITALS: BP 150/90
[2018-05-26 20:00] VITALS: BP 149/84
[2018-05-27] VITALS (8 sets, daily range): BP systolic 96–155; BP diastolic 63–93
[2018-05-27 07:35] LABS: BASO % 0.4 % (0.0-1.0); EOS # 0.2 10*3/uL (0.0-0.4); EOS % 3.2 % (1.0-4.0); HEMATOCRIT 34.6 % (42.0-52.0); LYMPH # 1.2 10*3/uL (1.3-4.4); LYMPH % 21.9 % (27.0-41.0); MEAN CORPUSCULAR HGB 29.3 pg (27.0-31.0); MEAN CORPUSCULAR HGB CONC 31.8 g/dl (33.0-37.0); MEAN PLATELET VOLUME 10.5 fl (9.6-12.3); MONO # 0.5 10*3/uL (0.1-1.0); MONO % 8.9 % (3.0-9.0); NEUT # 3.4 10*3/uL (2.3-7.9); NEUT % 65.2 % (47.0-73.0); PLATELET COUNT AUTOMATED 151 10*3/uL (130-400); RED BLOOD COUNT 3.76 10*6/uL (4.50-5.90); RED CELL DISTRI WIDTH 17.7 % (0-14.5); WHITE BLOOD COUNT 5.3 10*3/uL (4.8-10.8)
[2018-05-27 08:00] LABS: BUN 9 mg/dl (7-24); CHLORIDE 103 mmol/L (98-107); CREATININE 0.85 mg/dL (0.70-1.30); POTASSIUM 3.5 mmol/L (3.5-5.1); SODIUM 139 mmol/L (136-145)
[2018-05-28] VITALS: BP 120/59
[2018-05-28 07:21] LABS: BASO % 0.4 % (0.0-1.0); EOS # 0.2 10*3/uL (0.0-0.4); EOS % 4.2 % (1.0-4.0); HEMATOCRIT 36.5 % (42.0-52.0); HEMOGLOBIN 11.6 g/dl (14.0-18.0); LYMPH # 1.2 10*3/uL (1.3-4.4); LYMPH % 25.7 % (27.0-41.0); MEAN CELL VOLUME 92.6 fl (80.0-94.0); MEAN CORPUSCULAR HGB 29.4 pg (27.0-31.0); MEAN CORPUSCULAR HGB CONC 31.8 g/dl (33.0-37.0); MEAN PLATELET VOLUME 10.6 fl (9.6-12.3); MONO # 0.4 10*3/uL (0.1-1.0); NEUT # 2.7 10*3/uL (2.3-7.9); NEUT % 60.3 % (47.0-73.0); PLATELET COUNT AUTOMATED 160 10*3/uL (130-400); RED BLOOD COUNT 3.94 10*6/uL (4.50-5.90); RED CELL DISTRI WIDTH 17.7 % (0-14.5); WHITE BLOOD COUNT 4.6 10*3/uL (4.8-10.8)
[2018-05-28 07:42] LABS: ALBUMIN 3.3 gm/dl (3.1-4.5); ALKALINE PHOSPHATASE 65 U/L (45-117); BUN 10 mg/dl (7-24); CHLORIDE 103 mmol/L (98-107); CREATININE 0.95 mg/dL (0.70-1.30); POTASSIUM 3.7 mmol/L (3.5-5.1); SGOT/AST 15 IU/L (3-35); SGPT/ALT 14 U/L (12-78); SODIUM 140 mmol/L (136-145); TOTAL PROTEIN 7.2 gm/dL (6.4-8.2)
[2018-05-28 08:00] VITALS: BP 116/67
[2018-05-28 12:00] VITALS: BP 116/58
[2018-05-28 16:00] VITALS: BP 155/77
[2018-05-28 20:00] VITALS: BP 136/80
[2018-05-29] VITALS (11 sets, daily range): BP systolic 125–194; BP diastolic 62–90
[2018-05-29] MEDS ORDERED: IBU800 M1 PO (00:43)
[2018-05-30] VITALS: BP 123/70
[2018-05-30 06:18] LABS: BASO % 0.2 % (0.0-1.0); EOS # 0.1 10*3/uL (0.0-0.4); EOS % 1.1 % (1.0-4.0); HEMATOCRIT 33.6 % (42.0-52.0); HEMOGLOBIN 10.7 g/dl (14.0-18.0); LYMPH # 0.4 10*3/uL (1.3-4.4); LYMPH % 5.3 % (27.0-41.0); MEAN CELL VOLUME 91.6 fl (80.0-94.0); MEAN CORPUSCULAR HGB 29.2 pg (27.0-31.0); MEAN CORPUSCULAR HGB CONC 31.8 g/dl (33.0-37.0); MEAN PLATELET VOLUME 11.5 fl (9.6-12.3); MONO # 0.7 10*3/uL (0.1-1.0); MONO % 7.9 % (3.0-9.0); NEUT % 85.1 % (47.0-73.0); PLATELET COUNT AUTOMATED 126 10*3/uL (130-400); RED BLOOD COUNT 3.67 10*6/uL (4.50-5.90); RED CELL DISTRI WIDTH 17.9 % (0-14.5); WHITE BLOOD COUNT 8.3 10*3/uL (4.8-10.8)
[2018-05-30 06:48] LABS: ALBUMIN 3.2 gm/dl (3.1-4.5); ALKALINE PHOSPHATASE 92 U/L (45-117); BUN 11 mg/dl (7-24); CHLORIDE 100 mmol/L (98-107); CREATININE 0.99 mg/dL (0.70-1.30); POTASSIUM 3.5 mmol/L (3.5-5.1); SGOT/AST 23 IU/L (3-35); SGPT/ALT 21 U/L (12-78); SODIUM 134 mmol/L (136-145); TOTAL PROTEIN 6.7 gm/dL (6.4-8.2)
[2018-05-30 08:00] VITALS: BP 118/57
[2018-05-30] MEDS ORDERED: PROPRANOLOL HCL20 M1 PO (08:37)
[2018-05-30] MEDS ORDERED: CARVEDILOL6.25 MG PO (08:37)
[2018-05-30 09:02] VITALS: BP 123/65
== END 2018-05-30 09:45 | disposition home or self-care (01) | DRG 871 ==
LOC: ED 06:42 → EDHOLD 08:30 → 5E 08:30
PROVIDERS: Emergency Medicine; Internal Medicine
PROC: 0DB78ZX Excision of Stomach, Pylorus, Via Natural or Artificial Opening Endoscopic, Diagnostic (ICD-10-PCS; 2018-05-27)
PROC: 0D778ZZ Dilation of Stomach, Pylorus, Via Natural or Artificial Opening Endoscopic (ICD-10-PCS; 2018-05-27)
PROC: 0FJD8ZZ Inspection of Pancreatic Duct, Via Natural or Artificial Opening Endoscopic (ICD-10-PCS; principal; 2018-05-29)
PROC: BF181ZZ Fluoroscopy of Pancreatic Ducts using Low Osmolar Contrast (ICD-10-PCS; 2018-05-29)
DX: A41.9 Sepsis, unspecified organism (principal); K85.20 Alcohol induced acute pancreatitis without necrosis or infection; E43 Unspecified severe protein-calorie malnutrition; I85.00 Esophageal varices without bleeding; K83.1 Obstruction of bile duct; K31.1 Adult hypertrophic pyloric stenosis; E87.1 Hypo-osmolality and hyponatremia; E11.65 Type 2 diabetes mellitus with hyperglycemia; K76.6 Portal hypertension; K86.0 Alcohol-induced chronic pancreatitis; F10.239 Alcohol dependence with withdrawal, unspecified; Z68.1 Body mass index [BMI] 19.9 or less, adult; K22.2 Esophageal obstruction; R65.20 Severe sepsis without septic shock; K21.9 Gastro-esophageal reflux disease without esophagitis; I25.10 Atherosclerotic heart disease of native coronary artery without angina pectoris; F17.210 Nicotine dependence, cigarettes, uncomplicated; K29.20 Alcoholic gastritis without bleeding; I10 Essential (primary) hypertension; K86.89 Other specified diseases of pancreas; E78.5 Hyperlipidemia, unspecified; I95.1 Orthostatic hypotension; K83.8 Other specified diseases of biliary tract; E21.3 Hyperparathyroidism, unspecified; R74.8 Abnormal levels of other serum enzymes; E55.9 Vitamin D deficiency, unspecified; Z71.6 Tobacco abuse counseling; Z95.0 Presence of cardiac pacemaker; I25.2 Old myocardial infarction; Z90.49 Acquired absence of other specified parts of digestive tract; Z82.49 Family history of ischemic heart disease and other diseases of the circulatory system; Z83.3 Family history of diabetes mellitus; Z80.9 Family history of malignant neoplasm, unspecified; Z95.5 Presence of coronary angioplasty implant and graft; Z79.82 Long term (current) use of aspirin; Z79.899 Other long term (current) drug therapy

== ENCOUNTER → 2019-03-15 | Outpatient (CLI) | payer OTHER ==
[~2019-03-15] MED LIST changes: +CARVEDILOL6.25 MG PO; +IBU800 M1 PO; +PROPRANOLOL HCL20 M1 PO
== END | disposition home or self-care (01) ==
LOC: CT 12:53
DX: M47.22 Other spondylosis with radiculopathy, cervical region (principal)

== ENCOUNTER → 2019-07-06 | Outpatient (CLI) | payer OTHER ==
[2019-07-06 07:35] LABS: BUN 11 mg/dl (7-24); CHLORIDE 106 mmol/L (98-107); CREATININE 0.88 mg/dL (0.70-1.30); POTASSIUM 4.5 mmol/L (3.5-5.1); SODIUM 139 mmol/L (136-145)
[2019-07-06 07:38] LABS: CHOLESTEROL 105 mg/dL (<200); HDL CHOLESTEROL 45 mg/dl (40-60); LDL CHOLESTEROL 42 mg/dL (9-159); TRIGLYCERIDES 92 mg/dl (<150); VLDL CHOLESTEROL 18 mg/dL (6-40)
== END | disposition home or self-care (01) ==
LOC: LAB 07:02
PROVIDERS: Family Medicine
DX: E11.9 Type 2 diabetes mellitus without complications (principal)

== ENCOUNTER → 2019-11-23 | Outpatient (CLI) | payer OTHER ==
[2019-11-23 09:00] LABS: BASO % 0.4 % (0.0-1.0); EOS # 0.2 10*3/uL (0.0-0.4); EOS % 2.9 % (1.0-4.0); HEMATOCRIT 32.2 % (42.0-52.0); HEMOGLOBIN 9.7 g/dl (14.0-18.0); LYMPH # 1.5 10*3/uL (1.3-4.4); LYMPH % 18.6 % (27.0-41.0); MEAN CORPUSCULAR HGB 26.2 pg (27.0-31.0); MEAN CORPUSCULAR HGB CONC 30.1 g/dl (33.0-37.0); MEAN PLATELET VOLUME 10.6 fl (9.6-12.3); MONO # 0.8 10*3/uL (0.1-1.0); MONO % 9.5 % (3.0-9.0); NEUT # 5.6 10*3/uL (2.3-7.9); NEUT % 68.4 % (47.0-73.0); PLATELET COUNT AUTOMATED 282 10*3/uL (130-400); RED CELL DISTRI WIDTH 17.9 % (0-14.5); WHITE BLOOD COUNT 8.2 10*3/uL (4.8-10.8)
[2019-11-23 09:02] LABS: ALBUMIN 3.4 gm/dl (3.1-4.5); ALKALINE PHOSPHATASE 52 U/L (45-117); BUN 11 mg/dl (7-24); CHLORIDE 110 mmol/L (98-107); CREATININE 0.87 mg/dL (0.70-1.30); POTASSIUM 4.8 mmol/L (3.5-5.1); SGOT/AST 12 IU/L (3-35); SGPT/ALT 14 U/L (12-78); SODIUM 141 mmol/L (136-145); TOTAL PROTEIN 6.9 gm/dL (6.4-8.2)
== END | disposition home or self-care (01) ==
LOC: LAB 08:26
PROVIDERS: Family Medicine
DX: J44.9 Chronic obstructive pulmonary disease, unspecified (principal); R53.82 Chronic fatigue, unspecified

== ENCOUNTER → 2019-12-20 | Outpatient (CLI) | payer OTHER ==
[2019-12-20 10:09] LABS: BASO % 0.2 % (0.0-1.0); EOS # 0.3 10*3/uL (0.0-0.4); EOS % 2.7 % (1.0-4.0); HEMOGLOBIN 9.2 g/dl (14.0-18.0); LYMPH # 1.3 10*3/uL (1.3-4.4); LYMPH % 12.8 % (27.0-41.0); MEAN CELL VOLUME 87.5 fl (80.0-94.0); MEAN CORPUSCULAR HGB 26.8 pg (27.0-31.0); MEAN CORPUSCULAR HGB CONC 30.7 g/dl (33.0-37.0); MEAN PLATELET VOLUME 10.7 fl (9.6-12.3); MONO # 1.2 10*3/uL (0.1-1.0); MONO % 11.8 % (3.0-9.0); NEUT # 7.4 10*3/uL (2.3-7.9); NEUT % 72.2 % (47.0-73.0); PLATELET COUNT AUTOMATED 224 10*3/uL (130-400); RED BLOOD COUNT 3.43 10*6/uL (4.50-5.90); RED CELL DISTRI WIDTH 19.2 % (0-14.5); WHITE BLOOD COUNT 10.2 10*3/uL (4.8-10.8)
[2019-12-20 10:41] LABS: IRON 37 ug/dL (65-175); TOTAL IRON BINDING CAPACITY 366 ug/dl (250-450)
[2019-12-20 11:06] LABS: FERRITIN 10.8 ng/mL (22.0-322.0)
== END | disposition home or self-care (01) ==
LOC: LAB 09:43
PROVIDERS: Family Medicine
DX: D50.9 Iron deficiency anemia, unspecified (principal)

== ENCOUNTER 2020-05-16 16:03 | Emergency (ER) | payer OTHER ==
[2020-05-16 16:04] VITALS: BP 143/82
[2020-05-16 17:54] LABS: BASO % 0.3 % (0.0-1.0); EOS # 0.1 10*3/uL (0.0-0.4); EOS % 1.3 % (1.0-4.0); HEMATOCRIT 39.7 % (42.0-52.0); LYMPH # 1.4 10*3/uL (1.3-4.4); LYMPH % 21.5 % (27.0-41.0); MEAN CELL VOLUME 96.8 fl (80.0-94.0); MEAN CORPUSCULAR HGB 32.2 pg (27.0-31.0); MEAN CORPUSCULAR HGB CONC 33.2 g/dl (33.0-37.0); MEAN PLATELET VOLUME 10.5 fl (9.6-12.3); MONO # 0.8 10*3/uL (0.1-1.0); MONO % 11.9 % (3.0-9.0); NEUT # 4.3 10*3/uL (2.3-7.9); NEUT % 64.6 % (47.0-73.0); PLATELET COUNT AUTOMATED 244 10*3/uL (130-400); WHITE BLOOD COUNT 6.7 10*3/uL (4.8-10.8)
[2020-05-16 18:07] LABS: ACT PARTIAL THROMBO TIME 21.5 SECONDS (20.0-32.1)
[2020-05-16 18:12] LABS: ALKALINE PHOSPHATASE 54 U/L (45-117); BUN 8 mg/dl (7-24); CHLORIDE 103 mmol/L (98-107); CREATININE 0.88 mg/dL (0.70-1.30); LIPASE 101 U/L (73-393); POTASSIUM 4.1 mmol/L (3.5-5.1); SGOT/AST 10 IU/L (3-35); SGPT/ALT 14 U/L (12-78); SODIUM 134 mmol/L (136-145)
[2020-05-16 18:14] LABS: TROPONIN I < 0.015 ng/ml (<0.045)
== END 2020-05-16 22:24 | disposition home or self-care (01) ==
LOC: ED 16:03
PROVIDERS: Nurse Practitioner Family
DX: K29.70 Gastritis, unspecified, without bleeding (principal); I25.2 Old myocardial infarction; K21.9 Gastro-esophageal reflux disease without esophagitis; I10 Essential (primary) hypertension; Z79.899 Other long term (current) drug therapy; Z79.82 Long term (current) use of aspirin

== ENCOUNTER → 2020-06-01 | Outpatient (CLI) | payer OTHER | END | disposition home or self-care (01) | LOC: RAD 09:20 | DX: J44.9 Chronic obstructive pulmonary disease, unspecified (principal); R63.4 Abnormal weight loss ==

== ENCOUNTER → 2020-09-04 | Outpatient (CLI) | payer OTHER ==
[2020-09-04 09:45] LABS: BASO % 0.4 % (0.0-1.0); EOS # 0.2 10*3/uL (0.0-0.4); EOS % 2.5 % (1.0-4.0); HEMATOCRIT 35.8 % (42.0-52.0); LYMPH # 1.7 10*3/uL (1.3-4.4); LYMPH % 22.6 % (27.0-41.0); MEAN CORPUSCULAR HGB 31.6 pg (27.0-31.0); MEAN CORPUSCULAR HGB CONC 31.6 g/dl (33.0-37.0); MEAN PLATELET VOLUME 10.8 fl (9.6-12.3); MONO # 0.8 10*3/uL (0.1-1.0); MONO % 10.1 % (3.0-9.0); NEUT # 4.8 10*3/uL (2.3-7.9); NEUT % 64.1 % (47.0-73.0); PLATELET COUNT AUTOMATED 297 10*3/uL (130-400); RED BLOOD COUNT 3.58 10*6/uL (4.50-5.90); RED CELL DISTRI WIDTH 18.2 % (0-14.5); WHITE BLOOD COUNT 7.5 10*3/uL (4.8-10.8)
[2020-09-04 09:46] LABS: BILIRUBIN Negative (Negative); BLOOD Negative (Negative); CLARITY Clear (Clear); COLOR Yellow (Yellow); GLUCOSE Negative (Negative); KETONE Negative (Negative); LEUKO ESTERASE Negative (Negative); NITRITE Negative (Negative); SPECIFIC GRAVITY <= 1.005 (1.001-1.030); UROBILINOGEN 0.2 E.U./dl (0.0-1.0)
[2020-09-04 10:06] LABS: ALBUMIN 2.3 gm/dl (3.1-4.5); ALKALINE PHOSPHATASE 73 U/L (45-117); BILIRUBIN, DIRECT 0.2 mg/dL (0.0-0.2); BUN 9 mg/dl (7-24); CHLORIDE 104 mmol/L (98-107); CREATININE 0.76 mg/dL (0.70-1.30); POTASSIUM 3.9 mmol/L (3.5-5.1); SGOT/AST 19 IU/L (3-35); SGPT/ALT 14 U/L (12-78); SODIUM 137 mmol/L (136-145); TOTAL PROTEIN 6.1 gm/dL (6.4-8.2)
[2020-09-04 10:09] LABS: EPITHELIAL CELLS 0-2
[2020-09-04 10:12] LABS: THYROID STIM HORMONE (HS) 0.763 uIU/ml (0.358-4.75)
[2020-09-05 08:08] LABS: HEPATITIS B SURFACE AG Negative (Negative)
== END | disposition home or self-care (01) ==
LOC: LAB 09:18
PROVIDERS: Family Medicine; ATTEND Nurse Practitioner Family
DX: K76.0 Fatty (change of) liver, not elsewhere classified (principal); E11.9 Type 2 diabetes mellitus without complications; J44.9 Chronic obstructive pulmonary disease, unspecified; R06.00 Dyspnea, unspecified; R60.9 Edema, unspecified

== ENCOUNTER 2020-11-02 21:44 | Emergency (ER) | payer OTHER ==
[~2020-11-02] VITALS: Ht 4114 cm; Wt 61.2 kg
[2020-11-02 21:46] VITALS: BP 142/85
[2020-11-02 22:18] LABS: BASO % 0.3 % (0.0-1.0); EOS % 0.3 % (1.0-4.0); HEMATOCRIT 43.3 % (42.0-52.0); LYMPH # 1.7 10*3/uL (1.3-4.4); LYMPH % 17.1 % (27.0-41.0); MEAN CELL VOLUME 95.6 fl (80.0-94.0); MEAN CORPUSCULAR HGB CONC 33.5 g/dl (33.0-37.0); MEAN PLATELET VOLUME 10.3 fl (9.6-12.3); MONO % 9.7 % (3.0-9.0); NEUT # 7.1 10*3/uL (2.3-7.9); NEUT % 72.2 % (47.0-73.0); PLATELET COUNT AUTOMATED 279 10*3/uL (130-400); RED BLOOD COUNT 4.53 10*6/uL (4.50-5.90); RED CELL DISTRI WIDTH 16.8 % (0-14.5); WHITE BLOOD COUNT 9.9 10*3/uL (4.8-10.8)
[2020-11-02 22:37] LABS: ALBUMIN 1.3 gm/dl (3.1-4.5); ALKALINE PHOSPHATASE 206 U/L (45-117); BUN 21 mg/dl (7-24); CHLORIDE 108 mmol/L (98-107); CREATININE 1.17 mg/dL (0.70-1.30); POTASSIUM 4.9 mmol/L (3.5-5.1); SGOT/AST 65 IU/L (3-35); SGPT/ALT 49 U/L (12-78); SODIUM 135 mmol/L (136-145)
[2020-11-03] MEDS ORDERED: ZOFRAN4 MG PO (02:01)
== END 2020-11-03 04:31 | disposition home or self-care (01) ==
LOC: ED 21:44
PROVIDERS: Internal Medicine
DX: E83.42 Hypomagnesemia (principal); E46 Unspecified protein-calorie malnutrition; R79.89 Other specified abnormal findings of blood chemistry; I25.2 Old myocardial infarction; K21.9 Gastro-esophageal reflux disease without esophagitis; I10 Essential (primary) hypertension; E11.9 Type 2 diabetes mellitus without complications; F17.200 Nicotine dependence, unspecified, uncomplicated; Z79.899 Other long term (current) drug therapy; Z79.82 Long term (current) use of aspirin; Z79.84 Long term (current) use of oral hypoglycemic drugs; Z20.828 Contact with and (suspected) exposure to other viral communicable diseases

== ENCOUNTER 2020-11-05 06:02 | Inpatient (IN) | payer OTHER ==
[~2020-11-05] VITALS: Ht 175.2 cm; Wt 54.5 kg
[2020-11-05] VITALS (8 sets, daily range): BP systolic 83–118; BP diastolic 52–67
[~2020-11-05 06:02] MED LIST changes: +ZOFRAN4 MG PO
[2020-11-05 08:13] LABS: BASO % 0.2 % (0.0-1.0); EOS # 0.1 10*3/uL (0.0-0.4); EOS % 1.1 % (1.0-4.0); LYMPH # 1.9 10*3/uL (1.3-4.4); LYMPH % 21.8 % (27.0-41.0); MEAN CELL VOLUME 94.3 fl (80.0-94.0); MEAN CORPUSCULAR HGB 32.8 pg (27.0-31.0); MEAN CORPUSCULAR HGB CONC 34.7 g/dl (33.0-37.0); MEAN PLATELET VOLUME 10.7 fl (9.6-12.3); MONO % 11.5 % (3.0-9.0); NEUT # 5.5 10*3/uL (2.3-7.9); NEUT % 64.9 % (47.0-73.0); PLATELET COUNT AUTOMATED 220 10*3/uL (130-400); RED BLOOD COUNT 4.03 10*6/uL (4.50-5.90); RED CELL DISTRI WIDTH 16.8 % (0-14.5); WHITE BLOOD COUNT 8.5 10*3/uL (4.8-10.8)
[2020-11-05 08:24] LABS: ACT PARTIAL THROMBO TIME 25.4 SECONDS (20.0-32.1); INTERNATIONAL NORM RATIO 1.2 (2.0-3.5)
[2020-11-05 08:31] LABS: ALBUMIN 1.3 gm/dl (3.1-4.5); ALKALINE PHOSPHATASE 175 U/L (45-117); BUN 23 mg/dl (7-24); CHLORIDE 108 mmol/L (98-107); CPK 409 U/L (39-308); CREATININE 1.36 mg/dL (0.70-1.30); LIPASE 145 U/L (73-393); POTASSIUM 4.3 mmol/L (3.5-5.1); SGOT/AST 87 IU/L (3-35); SGPT/ALT 60 U/L (12-78); SODIUM 136 mmol/L (136-145); TOTAL PROTEIN 4.7 gm/dL (6.4-8.2)
[2020-11-05 08:35] LABS: ETHYL ALCOHOL < 3.0 mg/dl (<3); TROPONIN I < 0.015 ng/ml (<0.045)
[2020-11-06] VITALS (14 sets, daily range): BP systolic 88–123; BP diastolic 47–83
[2020-11-06 05:42] LABS: ALBUMIN 1.3 gm/dl (3.1-4.5); BUN 21 mg/dl (7-24); CHLORIDE 110 mmol/L (98-107); CREATININE 1.04 mg/dL (0.70-1.30); LDH 350 U/L (87-241); POTASSIUM 4.6 mmol/L (3.5-5.1); SGPT/ALT 61 U/L (12-78); SODIUM 138 mmol/L (136-145); TOTAL PROTEIN 4.6 gm/dL (6.4-8.2)
[2020-11-06 05:44] LABS: ALKALINE PHOSPHATASE 165 U/L (45-117); CPK 449 U/L (39-308); SGOT/AST 90 IU/L (3-35)
[2020-11-06 06:45] LABS: BASO % 0.1 % (0.0-1.0); HEMATOCRIT 38.7 % (42.0-52.0); LYMPH # 0.7 10*3/uL (1.3-4.4); LYMPH % 9.8 % (27.0-41.0); MEAN CELL VOLUME 94.9 fl (80.0-94.0); MEAN CORPUSCULAR HGB 32.4 pg (27.0-31.0); MEAN CORPUSCULAR HGB CONC 34.1 g/dl (33.0-37.0); MEAN PLATELET VOLUME 11.8 fl (9.6-12.3); MONO # 0.2 10*3/uL (0.1-1.0); MONO % 3.1 % (3.0-9.0); NEUT # 6.3 10*3/uL (2.3-7.9); NEUT % 86.2 % (47.0-73.0); PLATELET COUNT AUTOMATED 206 10*3/uL (130-400); RED BLOOD COUNT 4.08 10*6/uL (4.50-5.90); RED CELL DISTRI WIDTH 17.1 % (0-14.5); WHITE BLOOD COUNT 7.4 10*3/uL (4.8-10.8)
[2020-11-06 11:45] LABS: INTERNATIONAL NORM RATIO 1.4 (2.0-3.5)
[2020-11-06] MEDS ORDERED: OXYCODONE HCL10 M1 PO (18:32)
[2020-11-06] MEDS ORDERED: TRAVEL SICKNESS25 M1 PO (18:33)
[2020-11-06] MEDS ORDERED: PROPRANOLOL HCL20 MG PO (18:33)
[2020-11-06] MEDS ORDERED: FUROSEMIDE40 MG PO (18:34)
[2020-11-06] MEDS ORDERED: MIRTAZAPINE15 M2 PO (18:34)
[2020-11-07] VITALS: BP 108/69
[2020-11-07 04:00] VITALS: BP 116/63
[2020-11-07 06:31] LABS: BASO % 0.1 % (0.0-1.0); LYMPH # 1.8 10*3/uL (1.3-4.4); LYMPH % 11.1 % (27.0-41.0); MEAN CELL VOLUME 94.1 fl (80.0-94.0); MEAN CORPUSCULAR HGB 32.8 pg (27.0-31.0); MEAN CORPUSCULAR HGB CONC 34.9 g/dl (33.0-37.0); MEAN PLATELET VOLUME 11.3 fl (9.6-12.3); MONO # 1.1 10*3/uL (0.1-1.0); MONO % 7.1 % (3.0-9.0); NEUT # 12.8 10*3/uL (2.3-7.9); NEUT % 80.7 % (47.0-73.0); PLATELET COUNT AUTOMATED 233 10*3/uL (130-400); RED BLOOD COUNT 3.72 10*6/uL (4.50-5.90); WHITE BLOOD COUNT 15.9 10*3/uL (4.8-10.8)
[2020-11-07 06:57] LABS: BUN 26 mg/dl (7-24); CHLORIDE 107 mmol/L (98-107); CREATININE 1.21 mg/dL (0.70-1.30); POTASSIUM 4.9 mmol/L (3.5-5.1); SODIUM 134 mmol/L (136-145)
[2020-11-07 08:00] VITALS: BP 123/64
[2020-11-07 12:00] VITALS: BP 133/71
[2020-11-07] MEDS ORDERED: LACTULOSE20 GM/30 M PO (15:11)
[2020-11-07 16:00] VITALS: BP 128/64
[2020-11-07 20:00] VITALS: BP 121/74
[2020-11-08] VITALS: BP 114/66
[2020-11-08 05:43] LABS: BILIRUBIN Negative (Negative); BLOOD Negative (Negative); CLARITY Clear (Clear); COLOR Yellow (Yellow); GLUCOSE Negative (Negative); KETONE Negative (Negative); LEUKO ESTERASE Negative (Negative); NITRITE Negative (Negative); PH 5.5 (4.5-8.0); SPECIFIC GRAVITY 1.015 (1.001-1.030)
[2020-11-08 05:53] LABS: URINE AMPHETAMINES < 1000 (1000ng/ml); URINE BARBITURATES < 200 (200ng/ml); URINE BENZODIAZEPINES < 200 (200ng/ml); URINE CANNABINOIDS (THC) < 50 (50ng/ml); URINE COCAINE < 300 (300ng/ml); URINE METHADONE < 300 (300ng/ml); URINE OPIATES > 300 (300ng/ml)
[2020-11-08 06:00] LABS: EPITHELIAL CELLS 0-2; WBC 0-2 wbc/hpf (0-5)
[2020-11-08 06:10] LABS: URINE PHENCYCLIDINE < 25 (25ng/ml)
[2020-11-08 08:00] VITALS: BP 132/80
[2020-11-08 12:00] VITALS: BP 117/70
[2020-11-08] MEDS ORDERED: OXYCONTIN10 M1 PO (14:14)
== END 2020-11-08 13:22 | disposition other institution (70) | DRG 469 ==
LOC: ED 06:02 → EDHOLD 13:46 → 4E 13:46 → EDHOLD 11-06 13:53 → 5E 11-06 13:53 → 4E 11-06 18:42
PROVIDERS: Emergency Medicine; Internal Medicine; Student in an Organized Health Care Education/Training Program; ADMIT Emergency Medicine; ATTEND Emergency Medicine
DX: N17.0 Acute kidney failure with tubular necrosis (principal); E43 Unspecified severe protein-calorie malnutrition; E87.2 Acidosis; D64.9 Anemia, unspecified; R18.8 Other ascites; E87.8 Other disorders of electrolyte and fluid balance, not elsewhere classified; E11.65 Type 2 diabetes mellitus with hyperglycemia; R74.01 Elevation of levels of liver transaminase levels; E78.5 Hyperlipidemia, unspecified; I10 Essential (primary) hypertension; K21.9 Gastro-esophageal reflux disease without esophagitis; F17.210 Nicotine dependence, cigarettes, uncomplicated; I25.10 Atherosclerotic heart disease of native coronary artery without angina pectoris; E86.0 Dehydration; Z20.828 Contact with and (suspected) exposure to other viral communicable diseases; K86.89 Other specified diseases of pancreas; K86.1 Other chronic pancreatitis; Z95.0 Presence of cardiac pacemaker; Z90.49 Acquired absence of other specified parts of digestive tract; Z83.3 Family history of diabetes mellitus; Z82.49 Family history of ischemic heart disease and other diseases of the circulatory system; Z80.8 Family history of malignant neoplasm of other organs or systems; Z79.82 Long term (current) use of aspirin; Z79.899 Other long term (current) drug therapy; Z68.1 Body mass index [BMI] 19.9 or less, adult; G93.41 Metabolic encephalopathy; E72.4 Disorders of ornithine metabolism

== ENCOUNTER → 2020-11-23 | Outpatient (CLI) | payer OTHER ==
[~2020-11-23] MED LIST changes: +FUROSEMIDE40 MG PO; +LACTULOSE20 GM/30 M PO; +MIRTAZAPINE15 M2 PO; +OXYCODONE HCL10 M1 PO; +OXYCONTIN10 M1 PO; +PROPRANOLOL HCL20 MG PO; +TRAVEL SICKNESS25 M1 PO
== END | disposition home or self-care (01) ==
LOC: CT 13:00
PROVIDERS: ATTEND Internal Medicine
DX: K86.9 Disease of pancreas, unspecified (principal)

== ENCOUNTER 2020-12-24 11:09 | Inpatient (IN) | payer OTHER ==
[2020-12-24] VITALS (15 sets, daily range): BP systolic 80–100; BP diastolic 40–66
[~2020-12-24] VITALS: Ht 175.2 cm; Wt 50.4 kg
[~2020-12-24 11:09] MED LIST changes: +METFORMIN HYD1000 MG PO; -METFORMIN500 MG PO
[2020-12-24 12:33] LABS: HEMATOCRIT 29.7 % (42.0-52.0); MEAN CELL VOLUME 104.6 fl (80.0-94.0); MEAN CORPUSCULAR HGB 33.5 pg (27.0-31.0); MEAN PLATELET VOLUME 10.7 fl (9.6-12.3); PLATELET COUNT AUTOMATED 208 10*3/uL (130-400); RED BLOOD COUNT 2.84 10*6/uL (4.50-5.90); RED CELL DISTRI WIDTH 17.2 % (0-14.5); WHITE BLOOD COUNT 6.9 10*3/uL (4.8-10.8)
[2020-12-24 12:40] LABS: ACT PARTIAL THROMBO TIME 28.5 SECONDS (20.0-32.1); INTERNATIONAL NORM RATIO 1.2 (2.0-3.5)
[2020-12-24 12:44] LABS: ALBUMIN 1.3 gm/dl (3.1-4.5); ALKALINE PHOSPHATASE 156 U/L (45-117); BUN 29 mg/dl (7-24); CHLORIDE 103 mmol/L (98-107); CREATININE 1.54 mg/dL (0.70-1.30); LIPASE 33 U/L (73-393); POTASSIUM 3.7 mmol/L (3.5-5.1); SGOT/AST 46 IU/L (3-35); SGPT/ALT 29 U/L (12-78); SODIUM 137 mmol/L (136-145); TOTAL PROTEIN 4.5 gm/dL (6.4-8.2)
[2020-12-24 12:48] LABS: TROPONIN I < 0.015 ng/ml (<0.045)
[2020-12-24 13:18] LABS: ATYPICAL LYMPHS 1 % (0-0); BASOPHILS 1 % (0-1); PLATELET SUFFICIENCY NORMAL (NORMAL); TARGET CELLS MODERATE; TOTAL CELLS COUNTED 100 #CELLS
[2020-12-24] MEDS ORDERED: BRAIN MIGHT-DH1 EACH PO (18:06)
[2020-12-24] MEDS ORDERED: PERCOCET 10-321 EACH PO (18:07)
[2020-12-24] MEDS ORDERED: VISTARIL50 MG PO (18:09)
[2020-12-24 22:32] LABS: BILIRUBIN Negative (Negative); BLOOD Negative (Negative); CLARITY Clear (Clear); COLOR Yellow (Yellow); GLUCOSE Negative (Negative); KETONE Negative (Negative); LEUKO ESTERASE Negative (Negative); NITRITE Negative (Negative); UROBILINOGEN 0.2 E.U./dl (0.0-1.0)
[2020-12-24 22:59] LABS: BACTERIA TRACE; EPITHELIAL CELLS 0-2; RBC 0-2 rbc/hpf (0-2)
[2020-12-25] VITALS (11 sets, daily range): BP systolic 73–99; BP diastolic 48–67
[2020-12-25 06:42] LABS: HEMATOCRIT 23.8 % (42.0-52.0); LYMPH # 1.3 10*3/uL (1.3-4.4); LYMPH % 19.4 % (27.0-41.0); MEAN CELL VOLUME 102.6 fl (80.0-94.0); MEAN CORPUSCULAR HGB 33.6 pg (27.0-31.0); MEAN CORPUSCULAR HGB CONC 32.8 g/dl (33.0-37.0); MEAN PLATELET VOLUME 11.1 fl (9.6-12.3); MONO # 0.4 10*3/uL (0.1-1.0); MONO % 6.5 % (3.0-9.0); NEUT # 4.8 10*3/uL (2.3-7.9); NEUT % 73.6 % (47.0-73.0); PLATELET COUNT AUTOMATED 147 10*3/uL (130-400); RED BLOOD COUNT 2.32 10*6/uL (4.50-5.90); RED CELL DISTRI WIDTH 17.2 % (0-14.5); WHITE BLOOD COUNT 6.5 10*3/uL (4.8-10.8)
[2020-12-25 07:11] LABS: ALBUMIN 1.7 gm/dl (3.1-4.5); ALKALINE PHOSPHATASE 132 U/L (45-117); BUN 27 mg/dl (7-24); CHLORIDE 105 mmol/L (98-107); CREATININE 1.37 mg/dL (0.70-1.30); POTASSIUM 3.7 mmol/L (3.5-5.1); SGOT/AST 34 IU/L (3-35); SGPT/ALT 23 U/L (12-78); SODIUM 138 mmol/L (136-145)
[2020-12-25 20:45] LABS: ARTERIAL BLOOD GAS PH 7.445 (7.35-7.45)
[2020-12-25 20:46] LABS: ABG BASE EXCESS -5.4 mmol/L (-2.0-2.0)
[2020-12-26] VITALS (11 sets, daily range): BP systolic 70–132; BP diastolic 42–63
[2020-12-26 05:18] LABS: CREATININE 1.58 mg/dL (0.70-1.30); POTASSIUM 3.3 mmol/L (3.5-5.1); TOTAL PROTEIN 4.1 gm/dL (6.4-8.2)
[2020-12-26 06:15] LABS: HEMATOCRIT 22.6 % (42.0-52.0); MEAN CELL VOLUME 100.4 fl (80.0-94.0); MEAN CORPUSCULAR HGB 33.8 pg (27.0-31.0); MEAN CORPUSCULAR HGB CONC 33.6 g/dl (33.0-37.0); MEAN PLATELET VOLUME 10.8 fl (9.6-12.3); NUCLEATED RED BLOOD CELL 0.3 % (0.0-0.0); PLATELET COUNT AUTOMATED 134 10*3/uL (130-400); RED BLOOD COUNT 2.25 10*6/uL (4.50-5.90); RED CELL DISTRI WIDTH 17.2 % (0-14.5); WHITE BLOOD COUNT 9.4 10*3/uL (4.8-10.8)
[2020-12-26 06:42] LABS: TOTAL CELLS COUNTED 100 #CELLS
[2020-12-26 06:43] LABS: BURR CELLS MODERATE; PLATELET SUFFICIENCY NORMAL (NORMAL); POLYCHROMASIA SLIGHT; TARGET CELLS FEW
[2020-12-27] VITALS: BP 98/50
[2020-12-27 06:51] LABS: HEMATOCRIT 25.5 % (42.0-52.0); MEAN CELL VOLUME 101.6 fl (80.0-94.0); MEAN CORPUSCULAR HGB 33.5 pg (27.0-31.0); MEAN CORPUSCULAR HGB CONC 32.9 g/dl (33.0-37.0); MEAN PLATELET VOLUME 10.9 fl (9.6-12.3); PLATELET COUNT AUTOMATED 107 10*3/uL (130-400); RED BLOOD COUNT 2.51 10*6/uL (4.50-5.90); RED CELL DISTRI WIDTH 17.6 % (0-14.5); WHITE BLOOD COUNT 7.9 10*3/uL (4.8-10.8)
[2020-12-27 07:10] LABS: BURR CELLS MODERATE; PLATELET SUFFICIENCY LOW (NORMAL); TARGET CELLS FEW; TOTAL CELLS COUNTED 100 #CELLS
[2020-12-27 07:11] LABS: OVALOCYTES FEW; POLYCHROMASIA SLIGHT
[2020-12-27 07:12] LABS: BUN 27 mg/dl (7-24); CHLORIDE 113 mmol/L (98-107); CREATININE 1.05 mg/dL (0.70-1.30); POTASSIUM 3.5 mmol/L (3.5-5.1); SODIUM 144 mmol/L (136-145)
[2020-12-27 08:00] VITALS: BP 82/50
[2020-12-27 12:00] VITALS: BP 84/39
[2020-12-27 16:00] VITALS: BP 87/44
[2020-12-27 20:00] VITALS: BP 87/59
[2020-12-28] VITALS: BP 89/54
[2020-12-28 07:07] LABS: BUN 18 mg/dl (7-24); CHLORIDE 114 mmol/L (98-107); CREATININE 0.86 mg/dL (0.70-1.30); POTASSIUM 3.4 mmol/L (3.5-5.1); SODIUM 144 mmol/L (136-145)
[2020-12-28 08:00] VITALS: BP 100/57
[2020-12-28 12:40] VITALS: BP 110/55
[2020-12-28 16:00] VITALS: BP 110/70
[2020-12-28 16:48] LABS: BUN 15 mg/dl (7-24); CHLORIDE 114 mmol/L (98-107); CREATININE 0.85 mg/dL (0.70-1.30); SODIUM 144 mmol/L (136-145)
[2020-12-28 16:55] LABS: POTASSIUM 4.2 mmol/L (3.5-5.1)
[2020-12-28 20:00] VITALS: BP 122/77
[2020-12-29] VITALS: BP 102/66
[2020-12-29 06:54] LABS: BUN 13 mg/dl (7-24); CHLORIDE 112 mmol/L (98-107); CREATININE 0.72 mg/dL (0.70-1.30); POTASSIUM 3.7 mmol/L (3.5-5.1); SODIUM 140 mmol/L (136-145)
[2020-12-29 08:00] VITALS: BP 102/63
[2020-12-29 12:00] VITALS: BP 96/68
[2020-12-29 16:00] VITALS: BP 100/48
[2020-12-29 20:00] VITALS: BP 105/64
[2020-12-30] VITALS: BP 92/54
[2020-12-30 04:00] VITALS: BP 93/64
[2020-12-30 06:19] LABS: HEMATOCRIT 28.3 % (42.0-52.0); MEAN CELL VOLUME 101.8 fl (80.0-94.0); MEAN CORPUSCULAR HGB 33.8 pg (27.0-31.0); MEAN CORPUSCULAR HGB CONC 33.2 g/dl (33.0-37.0); MEAN PLATELET VOLUME 11.5 fl (9.6-12.3); PLATELET COUNT AUTOMATED 78 10*3/uL (130-400); RED BLOOD COUNT 2.78 10*6/uL (4.50-5.90); RED CELL DISTRI WIDTH 17.2 % (0-14.5); WHITE BLOOD COUNT 5.7 10*3/uL (4.8-10.8)
[2020-12-30 06:45] LABS: BUN 11 mg/dl (7-24); CHLORIDE 111 mmol/L (98-107); CREATININE 0.75 mg/dL (0.70-1.30); POTASSIUM 3.7 mmol/L (3.5-5.1); SODIUM 141 mmol/L (136-145)
[2020-12-30 07:11] LABS: ATYPICAL LYMPHS 1 % (0-0); TOTAL CELLS COUNTED 100 #CELLS
[2020-12-30 07:12] LABS: BURR CELLS FEW; PLATELET SUFFICIENCY LOW (NORMAL); TARGET CELLS FEW
[2020-12-30 12:00] VITALS: BP 84/54
[2020-12-30 16:00] VITALS: BP 86/39
[2020-12-30 20:00] VITALS: BP 92/53
[2020-12-31] VITALS: BP 91/55
[2020-12-31 06:18] LABS: HEMATOCRIT 29.9 % (42.0-52.0); MEAN CELL VOLUME 102.7 fl (80.0-94.0); MEAN CORPUSCULAR HGB 34.4 pg (27.0-31.0); MEAN CORPUSCULAR HGB CONC 33.4 g/dl (33.0-37.0); MEAN PLATELET VOLUME 11.8 fl (9.6-12.3); PLATELET COUNT AUTOMATED 64 10*3/uL (130-400); RED BLOOD COUNT 2.91 10*6/uL (4.50-5.90); RED CELL DISTRI WIDTH 17.2 % (0-14.5); WHITE BLOOD COUNT 5.1 10*3/uL (4.8-10.8)
[2020-12-31 06:26] LABS: BUN 11 mg/dl (7-24); CHLORIDE 111 mmol/L (98-107); CREATININE 0.83 mg/dL (0.70-1.30); SODIUM 143 mmol/L (136-145)
[2020-12-31 08:00] VITALS: BP 90/58
[2020-12-31 08:00] LABS: ATYPICAL LYMPHS 1 % (0-0); BURR CELLS FEW; PLATELET SUFFICIENCY LOW (NORMAL); SCHISTOCYTES FEW; TARGET CELLS FEW; TOTAL CELLS COUNTED 100 #CELLS
[2020-12-31 08:01] LABS: OVALOCYTES FEW
[2020-12-31 12:00] VITALS: BP 102/66
[2020-12-31 16:00] VITALS: BP 93/60
[2020-12-31 20:00] VITALS: BP 106/59
[2021-01-01] VITALS: BP 81/57
[2021-01-01 06:22] LABS: HEMATOCRIT 25.7 % (42.0-52.0); MEAN CELL VOLUME 103.6 fl (80.0-94.0); MEAN CORPUSCULAR HGB 34.3 pg (27.0-31.0); MEAN CORPUSCULAR HGB CONC 33.1 g/dl (33.0-37.0); MEAN PLATELET VOLUME 12.1 fl (9.6-12.3); PLATELET COUNT AUTOMATED 69 10*3/uL (130-400); RED BLOOD COUNT 2.48 10*6/uL (4.50-5.90); RED CELL DISTRI WIDTH 17.2 % (0-14.5)
[2021-01-01 06:31] LABS: BUN 11 mg/dl (7-24); CHLORIDE 109 mmol/L (98-107); CREATININE 0.82 mg/dL (0.70-1.30); POTASSIUM 3.9 mmol/L (3.5-5.1); SODIUM 140 mmol/L (136-145)
[2021-01-01 07:36] LABS: BURR CELLS MODERATE; PLATELET SUFFICIENCY LOW (NORMAL); POLYCHROMASIA SLIGHT; ROULEAUX SLIGHT; TARGET CELLS FEW; TOTAL CELLS COUNTED 100 #CELLS
[2021-01-01 07:37] LABS: SCHISTOCYTES FEW
[2021-01-01 08:00] VITALS: BP 86/52
[2021-01-01 12:00] VITALS: BP 102/60
[2021-01-01 16:00] VITALS: BP 97/62
[2021-01-01 20:00] VITALS: BP 96/53
[2021-01-02] VITALS: BP 91/51
[2021-01-02 06:32] LABS: MEAN CELL VOLUME 105.3 fl (80.0-94.0); MEAN CORPUSCULAR HGB 34.2 pg (27.0-31.0); MEAN CORPUSCULAR HGB CONC 32.5 g/dl (33.0-37.0); PLATELET COUNT AUTOMATED 60 10*3/uL (130-400); RED BLOOD COUNT 2.28 10*6/uL (4.50-5.90); RED CELL DISTRI WIDTH 16.9 % (0-14.5); WHITE BLOOD COUNT 7.5 10*3/uL (4.8-10.8)
[2021-01-02 06:48] LABS: BUN 10 mg/dl (7-24); CHLORIDE 108 mmol/L (98-107); CREATININE 0.87 mg/dL (0.70-1.30); POTASSIUM 4.1 mmol/L (3.5-5.1); SODIUM 139 mmol/L (136-145)
[2021-01-02 07:14] LABS: ATYPICAL LYMPHS 1 % (0-0); PLATELET SUFFICIENCY LOW (NORMAL); POLYCHROMASIA SLIGHT; TARGET CELLS FEW; TOTAL CELLS COUNTED 100 #CELLS
[2021-01-02 07:15] LABS: BURR CELLS FEW; OVALOCYTES FEW
[2021-01-02 08:00] VITALS: BP 80/67
[2021-01-02 16:00] VITALS: BP 98/52
[2021-01-02 20:00] VITALS: BP 95/47
[2021-01-03] VITALS: BP 96/55
[2021-01-03 08:00] VITALS: BP 180/72; BP 80/46
[2021-01-03 12:00] VITALS: BP 82/44
[2021-01-03] MEDS ORDERED: LOPRESSOR25 MG PO (14:29)
[2021-01-03] MEDS ORDERED: ENOXAPARIN60 MG/0.2 SC (14:29)
[2021-01-03] MEDS ORDERED: PERCOCET 10-321 EACH PO (14:29)
[2021-01-03] MEDS ORDERED: AMBIEN10 M1 PO (14:29)
[2021-01-03] MEDS ORDERED: DOXYCYCLINE100 M3 PO (15:43)
[2021-01-03 16:00] VITALS: BP 101/56
== END 2021-01-03 14:45 | DRG 469 ==
LOC: ED 11:09 → 5E 14:35 → EDHOLD 14:35 → 5E 22:56 → 4E 12-31 11:21
PROVIDERS: Family Medicine; Hospitalist; Internal Medicine; Physician Assistant; Student in an Organized Health Care Education/Training Program; ADMIT Emergency Medicine; ATTEND Emergency Medicine
PROC: 5A09357 Assistance with Respiratory Ventilation, Less than 24 Consecutive Hours, Continuous Positive Airway Pressure (ICD-10-PCS; principal; 2020-12-26)
PROC: 5A0935A Assistance with Respiratory Ventilation, Less than 24 Consecutive Hours, High Flow/Velocity Cannula (ICD-10-PCS; 2020-12-26)
PROC: 5A0935A Assistance with Respiratory Ventilation, Less than 24 Consecutive Hours, High Flow/Velocity Cannula (ICD-10-PCS; 2020-12-27)
PROC: 5A09357 Assistance with Respiratory Ventilation, Less than 24 Consecutive Hours, Continuous Positive Airway Pressure (ICD-10-PCS; 2020-12-27)
PROC: 5A09357 Assistance with Respiratory Ventilation, Less than 24 Consecutive Hours, Continuous Positive Airway Pressure (ICD-10-PCS; 2020-12-28)
PROC: 4B02XSZ Measurement of Cardiac Pacemaker, External Approach (ICD-10-PCS; 2020-12-30)
PROC: 5A0935A Assistance with Respiratory Ventilation, Less than 24 Consecutive Hours, High Flow/Velocity Cannula (ICD-10-PCS; 2021-01-03)
DX: N17.0 Acute kidney failure with tubular necrosis (principal); J96.01 Acute respiratory failure with hypoxia; I95.9 Hypotension, unspecified; E43 Unspecified severe protein-calorie malnutrition; K21.9 Gastro-esophageal reflux disease without esophagitis; I25.10 Atherosclerotic heart disease of native coronary artery without angina pectoris; R65.11 Systemic inflammatory response syndrome (SIRS) of non-infectious origin with acute organ dysfunction; K86.1 Other chronic pancreatitis; K76.6 Portal hypertension; E78.5 Hyperlipidemia, unspecified; D53.9 Nutritional anemia, unspecified; R18.8 Other ascites; E87.2 Acidosis; U07.1 COVID-19; E86.0 Dehydration; E83.42 Hypomagnesemia; J12.82 Pneumonia due to coronavirus disease 2019; R74.01 Elevation of levels of liver transaminase levels; I26.99 Other pulmonary embolism without acute cor pulmonale; E87.6 Hypokalemia; E16.2 Hypoglycemia, unspecified; I10 Essential (primary) hypertension; E11.65 Type 2 diabetes mellitus with hyperglycemia; E11.641 Type 2 diabetes mellitus with hypoglycemia with coma; K86.9 Disease of pancreas, unspecified; Z68.20 Body mass index [BMI] 20.0-20.9, adult; Z90.49 Acquired absence of other specified parts of digestive tract; Z82.49 Family history of ischemic heart disease and other diseases of the circulatory system; Z83.3 Family history of diabetes mellitus; Z79.82 Long term (current) use of aspirin; Z79.84 Long term (current) use of oral hypoglycemic drugs; Z79.899 Other long term (current) drug therapy

== ENCOUNTER 2021-01-03 20:47 | Inpatient (IN) | payer OTHER ==
[~2021-01-03] VITALS: Ht 170.1 cm; Wt 58.3 kg
[~2021-01-03 20:47] MED LIST changes: +BRAIN MIGHT-DH1 EACH PO; +DOXYCYCLINE100 M3 PO; +ENOXAPARIN60 MG/0.2 SC; +LOPRESSOR25 MG PO; +VISTARIL50 MG PO
[2021-01-03 20:48] VITALS: BP 94/57
[2021-01-03 21:46] LABS: HEMATOCRIT 22.5 % (42.0-52.0); MEAN CELL VOLUME 110.3 fl (80.0-94.0); MEAN CORPUSCULAR HGB 34.3 pg (27.0-31.0); MEAN CORPUSCULAR HGB CONC 31.1 g/dl (33.0-37.0); MEAN PLATELET VOLUME 11.5 fl (9.6-12.3); NUCLEATED RED BLOOD CELL 0.1 10*3/uL (0.0-0.0); NUCLEATED RED BLOOD CELL 0.3 % (0.0-0.0); RED BLOOD COUNT 2.04 10*6/uL (4.50-5.90); RED CELL DISTRI WIDTH 16.8 % (0-14.5); WHITE BLOOD COUNT 16.4 10*3/uL (4.8-10.8)
[2021-01-03 21:49] LABS: PLATELET COUNT AUTOMATED 128 10*3/uL (130-400)
[2021-01-03 21:55] LABS: INTERNATIONAL NORM RATIO 1.9 (2.0-3.5)
[2021-01-03 21:59] VITALS: BP 108/78
[2021-01-03 22:02] LABS: BURR CELLS FEW; PLATELET SUFFICIENCY LOW (NORMAL); TOTAL CELLS COUNTED 100 #CELLS
[2021-01-03 22:03] LABS: ALBUMIN 1.3 gm/dl (3.1-4.5); ALKALINE PHOSPHATASE 222 U/L (45-117); BUN 12 mg/dl (7-24); CHLORIDE 107 mmol/L (98-107); POTASSIUM 4.5 mmol/L (3.5-5.1); SGOT/AST 62 IU/L (3-35); SGPT/ALT 33 U/L (12-78); SODIUM 141 mmol/L (136-145); TOTAL PROTEIN 4.2 gm/dL (6.4-8.2)
[2021-01-04] VITALS (22 sets, daily range): BP systolic 86–130; BP diastolic 48–84
[2021-01-04 03:19] LABS: MEAN CELL VOLUME 111.3 fl (80.0-94.0); MEAN CORPUSCULAR HGB 34.5 pg (27.0-31.0); MEAN PLATELET VOLUME 12.3 fl (9.6-12.3); NUCLEATED RED BLOOD CELL 0.1 % (0.0-0.0); RED BLOOD COUNT 1.77 10*6/uL (4.50-5.90); RED CELL DISTRI WIDTH 16.7 % (0-14.5); WHITE BLOOD COUNT 13.6 10*3/uL (4.8-10.8)
[2021-01-04 03:22] LABS: PLATELET COUNT AUTOMATED 87 10*3/uL (130-400)
[2021-01-04 03:24] LABS: HEMATOCRIT 19.7 % (42.0-52.0)
[2021-01-04 03:36] LABS: ALBUMIN 1.1 gm/dl (3.1-4.5); ALKALINE PHOSPHATASE 179 U/L (45-117); BUN 11 mg/dl (7-24); CHLORIDE 112 mmol/L (98-107); CREATININE 1.15 mg/dL (0.70-1.30); SGOT/AST 69 IU/L (3-35); SGPT/ALT 30 U/L (12-78); SODIUM 140 mmol/L (136-145); TOTAL PROTEIN 3.7 gm/dL (6.4-8.2)
[2021-01-04 03:37] LABS: TROPONIN I 0.016 ng/ml (<0.045)
[2021-01-04 03:37] LABS: ARTERIAL BLOOD GAS PO2 357.2 (80-90)
[2021-01-04 03:39] LABS: POTASSIUM 5.9 mmol/L (3.5-5.1)
[2021-01-04 03:40] LABS: ABG BASE EXCESS -17.7 mmol/L (-2.0-2.0); ARTERIAL BLOOD GAS PH 7.142 (7.35-7.45)
[2021-01-04 03:45] LABS: PLATELET SUFFICIENCY LOW (NORMAL); TOTAL CELLS COUNTED 100 #CELLS
[2021-01-04 06:14] LABS: BILIRUBIN 2+ (Negative); BLOOD Negative (Negative); CLARITY Cloudy (Clear); COLOR Dark Yellow (Yellow); GLUCOSE Negative (Negative); KETONE Trace (Negative); LEUKO ESTERASE Trace (Negative); NITRITE Negative (Negative); PH 5.5 (4.5-8.0); SPECIFIC GRAVITY >= 1.030 (1.001-1.030)
[2021-01-04 06:42] LABS: BACTERIA 1+
[2021-01-04 08:12] LABS: HEMATOCRIT 23.3 % (42.0-52.0); MEAN CORPUSCULAR HGB 33.9 pg (27.0-31.0); MEAN CORPUSCULAR HGB CONC 32.6 g/dl (33.0-37.0); MEAN PLATELET VOLUME 11.4 fl (9.6-12.3); NUCLEATED RED BLOOD CELL 0.1 10*3/uL (0.0-0.0); NUCLEATED RED BLOOD CELL 0.3 % (0.0-0.0); PLATELET COUNT AUTOMATED 120 10*3/uL (130-400); RED BLOOD COUNT 2.24 10*6/uL (4.50-5.90); RED CELL DISTRI WIDTH 19.2 % (0-14.5); WHITE BLOOD COUNT 14.9 10*3/uL (4.8-10.8)
[2021-01-04 09:47] LABS: ABG BASE EXCESS -12.7 mmol/L (-2.0-2.0)
[2021-01-04 09:48] LABS: ARTERIAL BLOOD GAS PO2 27.7 (80-90)
[2021-01-04 09:49] LABS: ARTERIAL BLOOD GAS PH 7.176 (7.35-7.45)
[2021-01-04 09:59] LABS: BUN 12 mg/dl (7-24); CHLORIDE 112 mmol/L (98-107)
[2021-01-04 10:25] LABS: BURR CELLS FEW; PLATELET SUFFICIENCY LOW (NORMAL); SODIUM 142 mmol/L (136-145); TOTAL CELLS COUNTED 100 #CELLS
[2021-01-04 10:28] LABS: POTASSIUM 4.6 mmol/L (3.5-5.1)
== END 2021-01-04 09:15 | disposition short-term general hospital (02) | DRG 253 ==
LOC: ED 20:47 → EDHOLD 01-04 00:33 → ICCU 01-04 05:15
PROVIDERS: Emergency Medicine; Student in an Organized Health Care Education/Training Program; ADMIT Internal Medicine; ATTEND Internal Medicine
PROC: 0BH17EZ Insertion of Endotracheal Airway into Trachea, Via Natural or Artificial Opening (ICD-10-PCS; principal; 2021-01-04)
PROC: 5A1935Z Respiratory Ventilation, Less than 24 Consecutive Hours (ICD-10-PCS; 2021-01-04)
PROC: 30233N1 Transfusion of Nonautologous Red Blood Cells into Peripheral Vein, Percutaneous Approach (ICD-10-PCS; 2021-01-04)
PROC: 02HV33Z Insertion of Infusion Device into Superior Vena Cava, Percutaneous Approach (ICD-10-PCS; 2021-01-04)
PROC: B548ZZA Ultrasonography of Superior Vena Cava, Guidance (ICD-10-PCS; 2021-01-04)
DX: K92.2 Gastrointestinal hemorrhage, unspecified (principal); J96.01 Acute respiratory failure with hypoxia; I25.10 Atherosclerotic heart disease of native coronary artery without angina pectoris; E78.5 Hyperlipidemia, unspecified; D69.6 Thrombocytopenia, unspecified; E72.20 Disorder of urea cycle metabolism, unspecified; F51.01 Primary insomnia; R19.00 Intra-abdominal and pelvic swelling, mass and lump, unspecified site; E43 Unspecified severe protein-calorie malnutrition; D53.9 Nutritional anemia, unspecified; E86.0 Dehydration; E87.2 Acidosis; K21.01 Gastro-esophageal reflux disease with esophagitis, with bleeding; K76.6 Portal hypertension; I85.10 Secondary esophageal varices without bleeding; K86.9 Disease of pancreas, unspecified; R65.10 Systemic inflammatory response syndrome (SIRS) of non-infectious origin without acute organ dysfunction; F17.210 Nicotine dependence, cigarettes, uncomplicated; I10 Essential (primary) hypertension; Z95.0 Presence of cardiac pacemaker; Z90.49 Acquired absence of other specified parts of digestive tract; Z93.3 Colostomy status; Z82.49 Family history of ischemic heart disease and other diseases of the circulatory system; Z83.3 Family history of diabetes mellitus; Z79.82 Long term (current) use of aspirin; Z79.84 Long term (current) use of oral hypoglycemic drugs; Z79.899 Other long term (current) drug therapy; Z79.1 Long term (current) use of non-steroidal anti-inflammatories (NSAID); I25.2 Old myocardial infarction